=== PATIENT | female | born 1940 | race Caucasian/White ===

== ENCOUNTER 2017-01-17 22:01 | Inpatient (IN) | payer OTHER ==
[~2017-01-17] VITALS: Ht 165.1 cm; Wt 81.9 kg
[2017-01-17 22:10] VITALS: PULSE 169; O2SAT 95
[2017-01-17] MEDS ORDERED: METOPROLOL TARTRATE 1 MG/ML VIAL ONE (22:10)
[2017-01-17] MEDS ORDERED: AMIODARONE 150MG / 100ML D5W ONE (22:14)
[2017-01-17 22:31] LABS: ISTAT CREATININE 1.1 mg/dl (0.6-1.3); ISTAT HEMOGLOBIN 17.3 g/dl (12.0-16.0); ISTAT IONIZED CALCIUM 1.17 mmol/l (1.12-1.32)
[2017-01-17 22:32] LABS: VEN BLD GAS O2 SATURATION 95.3 %; VEN BLOOD GAS BASE EXCESS -6.7 mEq/L
[2017-01-17 22:39] LABS: HEMATOCRIT 46.9 % (37-47); MEAN CELL VOLUME 97.3 fL (80-100); MEAN CORPUSCULAR HEMOGLOBIN 31.1 pg (25-34); MEAN PLATELET VOLUME 11.6 fL (7.4-10.4); PLATELET COUNT 252 K/uL (130-400); RED BLOOD COUNT 4.82 M/uL (4.2-5.4)
--- NOTE | 2017-01-17 22:41 | DIAGNOSTIC IMAGING REPORT ---
CHEST ONE VIEW PORTABLE CLINICAL HISTORY: EVALUATE RESPIRATORY DISTRESS.DYSPNEA dyspnea COMPARISON STUDY: No previous studies for comparison. FINDINGS: Moderate cardiomegaly. Prominent pulmonary vasculature. Diaphragms are smooth. Slight blunting lateral costophrenic angles. IMPRESSION: Congestive heart failure versus pulmonary edema The above report was generated using voice recognition software. It may contain grammatical, syntax or spelling errors. Electronically signed by: Chente Mendez M.D. 01/17/2017 10:40 PM Dictated Date/Time: 01/17/2017 10:39 PM
[2017-01-17] MEDS ORDERED: [UNRECOGNIZED DRUG - OTHER] PO (22:46)
[2017-01-17] MEDS ORDERED: [UNRECOGNIZED DRUG - OTHER] PO (22:46)
[2017-01-17] MEDS ORDERED: CAND1TAB17 PO (22:46)
[2017-01-17] MEDS ORDERED: ALLO300T2 PO (22:46)
[2017-01-17] MEDS ORDERED: FELO5TAB PO (22:46)
[2017-01-17 22:51] LABS: INR 0.9 (0.9-1.1); PARTIAL THROMBOPLASTIN RATIO 0.9
[2017-01-17 22:57] LABS: BUN/CREATININE RATIO 16.6 (10-20); CALCIUM 8.8 mg/dl (8.5-10.1); CREATININE 1.38 mg/dl (0.60-1.20); POTASSIUM 4.5 mmol/L (3.5-5.1)
[2017-01-17 23:02] LABS: ALB/GLOB RATIO 0.9 (0.9-2)
[2017-01-17] MEDS ORDERED: ASPIRIN 324 MG CHEW PO STA (23:13)
[2017-01-17] MEDS ORDERED: NURSING VERBAL MED ORDER ONE (23:15)
[2017-01-17] MEDS: AMIODARONE IV BOLUS / DRIP IV STA ×2 (23:15→23:34)
[2017-01-17] MEDS ORDERED: AMIODARONE 360MG / 200ML D5W ONE (23:19)
[2017-01-17] MEDS ORDERED: AMIODARONE / D5W 200 ML IV SCH (23:30)
[2017-01-17 23:34] LABS: BASO ABS # 0.25 K/uL (0-0.2); BASOPHIL % 0.9 %; EOSINOPHIL % 6.2 %; LYMPH ABS # 10.74 K/uL (1.2-3.4); LYMPHOCYTE % 38.1 %; NEUTROPHILS % 26.5 %; VARIANT LYM ABS # 7.47 K/uL; VARIANT LYMPHOCYTE % 26.5 %
[2017-01-17 23:38] LABS: COMPLETE YES
--- NOTE | 2017-01-17 23:41 | EMERGENCY ROOM VISIT NOTE ---
History Report prepared by Tia: Meagan Ackerman Under the Supervision of: Dr. Monico Gomez M.D. First contact with patient: 21:58 Stated Complaint: TACHYCARDIA/SOB History of Present Illness The patient is a 76 year old white female with a past medical history of gout, HTN who presents to the ED with a cc of persistent SOB beginning 2099. She presents to the ED by EMS. EMS reports that she was in a wide complex tachycardia with rate up into the 200s. She was given lidocaine and adenosine in route. Positive tachycardia. Negative chest pain. Her family notes that she had a similar episode over the summer, but it was not as severe as this episode. Source of History: patient, family, EMS Onset: 2099 Position: other (global) Quality: other (SOB) Timing: other (persistent) Associated Symptoms: No chest pain Note: Pt has tachycardia. Review of Systems See HPI for pertinent positives and negatives. A total of ten systems were reviewed and were otherwise negative. Past Medical & Surgical Medical Problems: (1) Gout (2) HTN (hypertension) Family History No pertinent family history stated. Social History Marital Status: Current/Historical Medications Scheduled Allopurinol (Zyloprim), 300 MG PO BID Candesartan Cilexetil (Candesartan Cilexetil), 4 MG PO HS Felodipine (Plendil), 5 MG PO DAILY [Zimovane], 7.5 MG PO HS Scheduled PRN [Co-Codamol], 1-2 TABS PO QID PRN for PRN Allergies Coded Allergies: No Known Allergies (Unverified , 01/17/17) Physical Exam Vital Signs Date Time Temp Pulse Resp B/P (MAP) Pulse Ox O2 Delivery O2 Flow Rate FiO2 01/18/17 00:31 77 22 119/81 98 01/18/17 00:26 73 19 113/63 96 01/18/17 00:21 75 22 102/69 99 01/18/17 00:16 79 19 95 01/18/17 00:11 78 24 123/54 99 01/18/17 00:06 76 20 121/57 98 01/18/17 00:01 78 32 98/65 97 01/17/17 23:56 81 21 118/60 99 01/17/17 23:53 112/63 01/17/17 23:51 78 26 01/17/17 23:47 118/74 10/28/17 23:46 83 38 100 01/17/17 23:42 112/61 01/17/17 23:41 86 30 98 01/17/17 23:36 86 28 117/68 99 01/17/17 23:31 86 20 103/80 100 01/17/17 23:26 83 25 120/61 98 01/17/17 23:21 82 24 114/63 98 01/17/17 23:16 80 27 121/53 98 01/17/17 23:11 84 24 109/65 98 01/17/17 23:06 84 21 138/65 99 01/17/17 23:01 84 27 125/61 98 01/17/17 22:56 83 25 117/80 98 01/17/17 22:51 84 22 128/58 99 01/17/17 22:46 84 31 119/54 100 01/17/17 22:41 85 32 118/87 99 01/17/17 22:36 88 33 103/76 98 01/17/17 22:34 84 01/17/17 22:31 91 22 96/73 97 01/17/17 22:26 86 19 116/77 97 01/17/17 22:21 67 29 117/71 95 01/17/17 22:16 106 29 103/55 98 01/17/17 22:13 160 01/17/17 22:11 173 36 97 01/17/17 22:10 169 95 100 01/17/17 22:09 70 Room Air 01/17/17 22:09 80 Non-Rebreather 15.0 01/17/17 22:09 70 Room Air 01/17/17 22:09 160 40 112/86 70 Room Air 01/17/17 22:08 158 01/17/17 22:06 142 33 112/87 77 Physical Exam GENERAL: In extremis, tachypneic, very pale. HENT: Normocephalic, atraumatic. EYES: Normal conjunctiva. Sclera non-icteric. NECK: Supple. No nuchal rigidity. FROM. RESPIRATORY: Some crackles throughout CARDIAC: Tachycardic, no MRG ABDOMEN: Soft, NTND, BS+ MSK: No chest wall TTP. 1-2+ pitting edema b/l LE, no asymmetry. NEURO: GCS 15, CN 2-12 intact, moves all 4s on command SKIN: No rash or jaundice noted. Medical Decision & Procedures ER Provider Diagnostic Interpretation: Radiology results as stated below per my review and radiologist interpretation: CHEST ONE VIEW PORTABLE CLINICAL HISTORY: EVALUATE RESPIRATORY DISTRESS.DYSPNEA dyspnea COMPARISON STUDY: No previous studies for comparison. FINDINGS: Moderate cardiomegaly. Prominent pulmonary vasculature. Diaphragms are smooth. Slight blunting lateral costophrenic angles. IMPRESSION: Congestive heart failure versus pulmonary edema The above report was generated using voice recognition software. It may contain grammatical, syntax or spelling errors. Electronically signed by: Chente Mendez M.D. 01/17/2017 10:40 PM Dictated Date/Time: 01/17/2017 10:39 PM Laboratory Results 01/17/17 22:05 Red Blood Count 4.82, Mean Corpuscular Volume 97.3, Mean Corpuscular Hemoglobin 31.1, Mean Corpuscular Hemoglobin Concent 32.0, Mean Platelet Volume 11.6 01/17/17 22:05 Test 01/17/17 22:05 01/17/17 22:16 01/17/17 22:17 01/17/17 22:23 White Blood Count 28.20 K/uL (4.8-10.8) Red Blood Count 4.82 M/uL (4.2-5.4) Hemoglobin 15.0 g/dL (12.0-16.0) Hematocrit 46.9 % (37-47) Mean Corpuscular Volume 97.3 fL (80-100) Mean Corpuscular Hemoglobin 31.1 pg (25-34) Mean Corpuscular Hemoglobin Concent 32.0 g/dl (32-36) Platelet Count 252 K/uL (130-400) Mean Platelet Volume 11.6 fL (7.4-10.4) RDW Standard Deviation 59.6 fL (36.4-46.3) RDW Coefficient of Variation 17.2 % (11.5-14.5) Neutrophils % (Manual) 26.5 % Lymphocytes % (Manual) 38.1 % Variant Lymphocytes % (manual) 26.5 % Monocytes % (Manual) 1.8 % Eosinophils % (Manual) 6.2 % Basophils % (Manual) 0.9 % Neutrophils # (Manual) 7.47 K/uL (1.4-6.5) Total Absolute Neutrophils 7.47 K/uL (1.4-6.5) Lymphocytes # (Manual) 10.74 K/uL (1.2-3.4) Absolute Variant Lymphocytes 7.47 K/uL Total Absolute Lymphocytes 18.22 K/uL (1.2-3.4) Monocytes # (Manual) 0.51 K/uL (0.11-0.59) Eosinophils # (Manual) 1.75 K/uL (0-0.5) Basophils # (Manual) 0.25 K/uL (0-0.2) Red Blood Cell Morphology Unremarkable Prothrombin Time 10.0 SECONDS (9.0-12.0) Prothromb Time International Ratio 0.9 (0.9-1.1) Activated Partial Thromboplast Time 23.8 SECONDS (21.0-31.0) Partial Thromboplastin Ratio 0.9 Est Creatinine Clear Calc Drug Dose 38.1 ml/min Estimated GFR () 42.3 Estimated GFR (Non- 36.5 BUN/Creatinine Ratio 16.6 (10-20) Calcium Level 8.8 mg/dl (8.5-10.1) Magnesium Level 2.1 mg/dl (1.8-2.4) Total Bilirubin 0.3 mg/dl (0.2-1) Aspartate Amino Transf (AST/SGOT) 44 U/L (15-37) Alanine Aminotransferase (ALT/SGPT) 46 U/L (12-78) Alkaline Phosphatase 92 U/L (45-117) Pro-B-Type Natriuretic Peptide 816 pg/ml (0-1800) Total Protein 8.2 gm/dl (6.4-8.2) Albumin 3.8 gm/dl (3.4-5.0) Globulin 4.4 gm/dl (2.5-4.0) Albumin/Globulin Ratio 0.9 (0.9-2) Procalcitonin < 0.05 ng/ml (0-0.5) Chemistry Specimen Hemolysis Bedside Troponin I 0.210 ng/ml (0-0.045) Bedside Hemoglobin 17.3 g/dl (12.0-16.0) Bedside Hematocrit 51 % (37-47) Bedside Sodium 141 mEq/L (135-144) Bedside Potassium 4.4 mEq/L (3.3-5.0) Bedside Chloride 105 mEq/L (101-112) Bedside Total CO2 23 mEq/l (24-31) Anion Gap 19.0 mmol/L (16-25) Bedside Blood Urea Nitrogen 27 mg/dl (7-18) Bedside Creatinine 1.1 mg/dl (0.6-1.3) Bedside Glucose (other) 303 mg/dl (70-99) Bedside Ionized Calcium (Leena) 1.17 mmol/l (1.12-1.32) Lactic Acid Level 5.5 mmol/L (0.4-2.0) Test 01/17/17 22:24 01/17/17 22:27 01/18/17 00:14 Bedside Lactic Acid Venous 6.20 mmol/L (0.90-1.70) Venous Blood pH 7.25 (7.36-7.41) Venous Blood Partial Pressure CO2 48 mmHg (38.0-50.0) Venous Blood Partial Pressure O2 91 mmHg Venous Blood HCO3 21 mmol/L Venous Blood Oxygen Saturation 95.3 % Venous Blood Base Excess -6.7 mEq/L Laboratory results reviewed by me Medications Administered Medications (Trade) Dose Ordered Sig/Vanessa Route Start Time Stop Time Status Last Admin Dose Admin Metoprolol Tartrate (Lopressor Iv) 15 mg STK-MED ONCE .ROUTE 01/17/17 22:10 01/17/17 22:11 DC 01/17/17 22:13 5 MG Amiodarone HCL/ Dextrose (Nexterone / D5w) 150 mg STK-MED ONCE .ROUTE 01/17/17 22:14 01/17/17 22:15 DC 01/17/17 22:17 150 MG Aspirin (Aspirin Chew) 324 mg NOW STAT PO 01/17/17 23:13 01/17/17 23:14 DC 01/17/17 23:27 324 MG Amiodarone HCL/ Dextrose 200 ml @ 33.3 mls/hr Q6H1M IV 01/17/17 23:30 01/18/17 05:30 01/17/17 23:34 33.3 MLS/HR ECG Indication: SOB/dyspnea Rate (beats per minute): 151 Rhythm: other (regular wide complex tachycardia) Findings: LBBB (likely), ST depression (mild, V6), T-wave inversion (Lateral), other (QRS wide, no other STS changes or TWI) ED Course 2203: The patient was evaluated in room B1. A complete history and physical exam was performed. 8: I reevaluated the patient. 2220: I discussed the patient's case with Dr. Adames, [facility] cardiology. We are in agreement with the plan. 2224: Repeat EKG at this time shows sinus bradycardia, rate 40, wide QRS, LBBB, abnormally long pause, no STS changes or TWI. 2225: I reevaluated the patient. Repeat EKG at this time shows NS, rate 87, wide QRS, LBBB, LAD, TWI in 1 and avL. 2246: I spoke with Dr. Adames. 2300: I reevaluated the patient. I discussed the test results and treatment plan with her and family. The patient will be evaluated for further management. 2309: I discussed the patient's case with Dr. Giang, [facility] hospitalist. The patient will be evaluated for further treatment and disposition. Medical Decision Differential diagnosis: Etiologies such as infections, reactive airway disease, pneumonia, pneumothorax , COPD, CHF, cardiac ischemia, pulmonary embolism, musculoskeletal, gastrointestinal, as well as others were entertained. The patient is a 76 year old white female with a past medical history of gout, HTN who presents to the ED with a cc of persistent SOB beginning 2099. Patient was seen and evaluated at the bedside. This was after receiving an EMS phone call concern for a wide complex tachycardia. Patient had been given some lidocaine as well as some adenosine. Patient upon presentation was in extremis. Patient was tachypnea, tachycardic, hypoxic in the 60s. Patient was immediately put on a nonrebreather. Respiratory was called for BiPAP. On exam patient did have crackles and some mild lower extremity edema. Patient was able to speak one word at a time. I performed a bedside ultrasound which did show that the patient was fairly tachycardic but without any pericardial effusion. Patient had diffuse B lines in the bilateral lung rick but with good lung sliding. Concern for possible consolidation versus pulmonary edema. Patient's IVC was not fairly plethoric nor is flat. Given the patient's tachycardia and EKG was obtained which show that she may have been in some sort of V. tach versus A. fib versus SVT. Patient was trialed with one dose of Lopressor. This briefly improved her rate into the 140s after being as high as 180s. Patient was subsequently started on amiodarone. Patient did have a long pause and then converted to sinus. Upon reassessment patient was feeling much improved as her heart rate had improved and w/ being placed on the BiPAP. After obtaining additional history from the and from the patient they are recently [place] to visit family and friends from [place]. Patient did say she had a history of an irregular rhythm in the past have been started on atenolol. also does have a history of gout and hypertension. Patient does not take any blood thinning medications. Patient's initial troponin was elevated. I did have a long discussion with cardiology who believes that she more likely may have a SVT as opposed to a ventricular tachycardia. He recommended continuing the amiodarone drip. He also agreed to give full dose aspirin but would not do ACS protocols likely demand ischemia especially in light of her high lactate. I spoke with the admitting physician agreed with the plan of care and the patient was admitted for further workup and evaluation. Medication Reconcilliation Current Medication List: was personally reviewed by me Blood Pressure Screening Patient's blood pressure: Normal blood pressure Blood pressure disposition: Did not require urgent referral Consults Time Called: 2213 Consulting Physician: Dr. Adames [facility] cardiology Returned Call: [phone] I discussed the patient's case with him. We are in agreement with the plan. Additional Consults: Time Called: [phone] Consulted Physician: Dr. Giang [facility] hospitalist Returned Call: [phone] Additional Comments: Discussed the patient's case. The patient will be evaluated for further treatment and disposition. Impression Primary Impression: Atrial fibrillation with RVR Additional Impressions: Respiratory failure with hypoxia CHF (congestive heart failure) Critical Care I have personally spent greater than 49 minutes of critical care time in the direct management of this patient. This includes bedside care, interpretation of diagnostic studies, and testing, discussion with consultants, patient, and family members, and other required patient management activities. This 49 minutes is in excess of all separately billable procedures. Scribe Attestation The scribe's documentation has been prepared under my direction and personally reviewed by me in its entirety. I confirm that the note above accurately reflects all work, treatment, procedures, and medical decision making performed by me. Departure Information Dispostion Being Evaluated By Hospitalist Problem Qualifiers
[2017-01-18] VITALS (14 sets, daily range): BP systolic 125–157; BP diastolic 72–99; PULSE 65–82; TEMP 36.5–36.9; O2SAT 90–99; BMI 30.6
[2017-01-18] MEDS ORDERED: LORAZEPAM 0.5 MG TAB PO ONE
[2017-01-18 00:10] LABS: MAGNESIUM 2.1 mg/dl (1.8-2.4)
[2017-01-18] MEDS ORDERED: OPTIRAY 320 IV PRN (00:30)
[2017-01-18] MEDS ORDERED: LEVALBUTEROL/IPRATROPIUM NEB INH ONE (00:33)
[2017-01-18] MEDS ORDERED: AMIODARONE IV BOLUS / DRIP IV STA (00:33)
[2017-01-18] MEDS ORDERED: GLUCAGON FOR INJ 1 MG VIAL SQ PRN (00:45)
[2017-01-18] MEDS ORDERED: PROMETHAZINE HCL INJ 12.5 MG in SODIUM CHLORIDE 0.9% 50ML 50 ML IV PRN (00:45)
[2017-01-18] MEDS ORDERED: ACETAMINOPHEN 325 MG TAB PO PRN (00:45)
[2017-01-18] MEDS ORDERED: HYDROmorphone INJ 0.5 MG/0.5 ML SYR IV PRN ×2 (00:45)
[2017-01-18] MEDS ORDERED: DEXTROSE 50% 50 ML SYR IV PRN (00:45)
[2017-01-18] MEDS ORDERED: GLUCOSE 10 TABS/TUBE PO PRN (00:45)
[2017-01-18] MEDS ORDERED: TRAMADOL HCL 50 MG TAB PO PRN (00:45)
[2017-01-18] MEDS ORDERED: LEVALBUTEROL/IPRATROPIUM NEB INH PRN (00:45)
[2017-01-18] MEDS ORDERED: NITROGLYCERIN 0.4 MG SL PER TAB CHARGE SL PRN (00:45)
[2017-01-18] MEDS ORDERED: GLUCOSE 40% GEL 15 GM TUBE PO PRN (00:45)
[2017-01-18] MEDS ORDERED: IPRATROPIUM BROMIDE NEB SOLN 0.02% 2.5 ML VIAL INH STA (00:49)
[2017-01-18] MEDS ORDERED: LEVALBUTEROL 1.25MG/0.5ML NEB INH STA (00:49)
--- NOTE | 2017-01-18 00:49 | Critical Care Consultation ---
Critical Care Consultation Date of Consultation: Jan 18, 2017. Attending Physician: Reason for Consultation: Rapid afib with RVR History of Present Illness 76 year old female with PMH of gout, htn and diabetes who presented to [facility] with shortness of breath. At 6 oclock this evening she was walking down stairs when she began to feel light headed, grabbed for the railing and then passed out for no more than 10 seconds. She denies any visual changes, aura, or headache prior to the fall. The next thing she knew she was awake and there were several people around her. She did not have any tongue biting or incontinence of urine. At that point she said she felt ok and decided not to call the ambulance. 3 hours later at 9pm she started feeling short of breath on the car ride home from her friends house. The shortness of breath persisted and therefore she called EMS and was found be in afib with a wide complex and her rates were in the 200's. In the ambulance on the way to the ED she was given lidocaine and adenosine. She had a similar episode that she felt was similar in the summer but not as severe. She also notes that over the past 3 weeks she has had back pain and jaw pain at approximately the same time each day (4pm) which usually resolves with taking a codein/tylenol pill; however, she had recently stopped taking the codeine because she felt that it was making her constipated. She also notes that she has been more short of breath for the past year especially with exertion. She denies any symptoms of chest or palpitations. The CXR showed moderate cardiomegaly with prominent pulmonary vasculature. EKG showed a wide complex tachycardia at [address] mild [address] depression in V1. Pertinent labs include a wcc of 28.2 with a total lymphocyte count of 18.22 , a lactic acid of 5.5, and troponin .21. The case was discussed Dr. Adames and it was decided to start the patient on an Amiodarone drip and the patient was placed on a non rebreather at 15L of O2. The patients shortness of breath improved and her heart rate came down to the 80 's. The patient was then transferred to the ICU in case the patient had to be cardioverted. She had a chest CT angio which showed bilateral groundglass opacities and small bilateral pleural effusions. Ct abdomen/pelvis was without any acute pathology. In the ICU the patient was in NSR in the 70's and was in no discomfort. She did have part of her hearing aid lodged in her left ear that was manually removed at the bedside; however part of it was still remaining and unable to be removed. Patient was started on IV heparin due to CHADSVASC of 4. EKG obtained in the ICU did show ST elevations in leads [address] Ramos was notified of the ST elevations without reciprocal changes. He told me call cards to review the EKG and start heparin. I phoned Dr. Adames (legislative assistant) and he requested that Dr. Addison review the EKG. I approached Dr. Addison and he reviewed the EKG and said that he would get in touch with Dr. Adames. Of note the patient lives in [place] and is planning to go home on Thursday. She smokes 6 pack of cigarettes daily. Past Medical/Surgical History Gout HTN Diabetes Family History Dad - [place] Mom - Stroke Social History Smoking Status: Current Every Day Smoker (6 cigarretes daily) Alcohol Use: socially (5 days of week will have a glass of wine) Marital Status: Housing Status: lives with significant other Occupation Status: retired Allergies Coded Allergies: No Known Allergies (Unverified , 01/17/17) Home Medications Scheduled Allopurinol (Zyloprim), 300 MG PO BID Candesartan Cilexetil (Candesartan Cilexetil), 4 MG PO HS Felodipine (Plendil), 5 MG PO DAILY [Zimovane], 7.5 MG PO HS Scheduled PRN [Co-Codamol], 1-2 TABS PO QID PRN for PRN Current Inpatient Medications Current Inpatient Medications Medications (Trade) Dose Ordered Sig/Vanessa Route Start Time Stop Time Status Last Admin Dose Admin Amiodarone HCL/ Dextrose 200 ml @ 33.3 mls/hr Q6H1M IV 01/17/17 23:30 01/18/17 05:30 01/17/17 23:34 33.3 MLS/HR Ioversol (Optiray 320) 125 ml UD PRN IV 01/18/17 00:30 01/22/17 00:29 Acetaminophen (Tylenol Tab) 650 mg Q4H PRN PO 01/18/17 00:45 02/17/17 00:44 UNV Nitroglycerin (Nitrostat Tab) 0.4 mg UD PRN SL 01/18/17 00:45 02/17/17 00:44 UNV Insulin Glargine (Lantus Solostar Pen) 10 units DAILY SC 01/19/17 09:00 02/18/17 08:59 UNV Insulin Aspart (novoLOG ASPART) SLIDING SCALE If C... ACHS SC 01/18/17 07:00 02/17/17 06:59 UNV Glucose (Glucose 40% Gel) 15-30 GRAMS 15 GRAMS... UD PRN PO 01/18/17 00:45 02/17/17 00:44 UNV Glucose (Glucose Chew Tab) 4-8 Tablets 4 Tabl... UD PRN PO 01/18/17 00:45 02/17/17 00:44 UNV Dextrose (Dextrose 50% 50ML Syringe) 25-50ML OF 50% DW IV FOR... UD PRN IV 01/18/17 00:45 02/17/17 00:44 UNV Glucagon (Glucagon Inj) 1 mg UD PRN SQ 01/18/17 00:45 02/17/17 00:44 UNV Insulin Glargine (Lantus Solostar Pen) 10 units 0033 ONCE SC 01/18/17 00:33 01/18/17 00:34 UNV Insulin Aspart (novoLOG ASPART) SLIDING SCALE If C... 0033 ONCE SC 01/18/17 00:33 01/18/17 00:34 UNV Hydromorphone HCl (Dilaudid Inj) 0.5 mg Q3H PRN IV 01/18/17 00:45 02/01/17 00:44 UNV Miscellaneous (Xopenex/ Atrovent Neb) 1 ea Q4H PRN INH 01/18/17 00:45 02/17/17 00:44 UNV Miscellaneous (Xopenex/ Atrovent Neb) 1 ea 0033 ONCE INH 01/18/17 00:33 01/18/17 00:34 UNV Amiodarone HCl (Cordarone IV Bolus / Drip) 1 ea NOW STAT IV 01/18/17 00:33 01/18/17 00:34 UNV Nicotine (Nicoderm Cq 7 Mg Patch) 1 patch QAM TD 01/18/17 09:00 02/17/17 08:59 UNV Miscellaneous (Remove Nicoderm Patch) 1 ea HS N/A 01/18/17 21:00 02/17/17 20:59 UNV Promethazine HCl 12.5 mg/Sodium Chloride 50.5 ml @ 204 mls/hr Q6H PRN IV 01/18/17 00:45 02/17/17 00:44 Tramadol HCl (Ultram Tab) not relieved by tylenol @ Q6H PRN PO 01/18/17 00:45 02/17/17 00:44 UNV Hydromorphone HCl (Dilaudid Inj) 0.5 mg Q3H PRN IV 01/18/17 00:45 02/01/17 00:44 UNV Allopurinol (Zyloprim Tab) 300 mg BID PO 01/18/17 09:00 02/17/17 08:59 UNV Felodipine (Plendil Tabcr) 5 mg DAILY PO 01/18/17 09:00 02/17/17 08:59 UNV Review of Systems Constitutional: + fatigue, No fever, No chills, No sweats Respiratory: + cough (brown sputum (chronic issue)), + sputum, + shortness of breath, + dyspnea on exertion, No dyspnea at rest, No hemoptysis Cardiovascular: No chest pain, No orthopnea, No PND, No edema, No claudication , No palpitations Abdomen: + constipation, No pain, No nausea, No vomiting, No diarrhea Musculoskeletal: + muscle pain (back pain), No joint pain, No swelling, No calf pain Genitourinary - Female: No dysuria, No urinary frequency, No urinary urgency Neurologic: No paralysis, No weakness, No numbness/tingling, No vertigo Hematologic / Lymphatic: No abnormal bleeding/bruising, No clotting problems Physical Exam Date Time Temp Pulse Resp B/P (MAP) Pulse Ox O2 Delivery O2 Flow Rate FiO2 01/18/17 00:31 77 22 119/81 98 01/18/17 00:26 73 19 113/63 96 01/18/17 00:21 75 22 102/69 99 01/18/17 00:16 79 19 95 01/18/17 00:11 78 24 123/54 99 01/18/17 00:06 76 20 121/57 98 01/18/17 00:01 78 32 98/65 97 01/17/17 23:56 81 21 118/60 99 01/17/17 23:53 112/63 01/17/17 23:51 78 26 01/17/17 23:47 118/74 01/17/17 23:46 83 38 100 01/17/17 23:42 112/61 01/17/17 23:41 86 30 98 01/17/17 23:36 86 28 117/68 99 01/17/17 23:31 86 20 103/80 100 01/17/17 23:26 83 25 120/61 98 01/17/17 23:21 82 24 114/63 98 01/17/17 23:16 80 27 121/53 98 01/17/17 23:11 84 24 109/65 98 01/17/17 23:06 84 21 138/65 99 01/17/17 23:01 84 27 125/61 98 01/17/17 22:56 83 25 117/80 98 01/17/17 22:51 84 22 128/58 99 01/17/17 22:46 84 31 119/54 100 01/17/17 22:41 85 32 118/87 99 01/17/17 22:36 88 33 103/76 98 01/17/17 22:34 84 01/17/17 22:31 91 22 96/73 97 01/17/17 22:26 86 19 116/77 97 01/17/17 22:21 67 29 117/71 95 01/17/17 22:16 106 29 103/55 98 01/17/17 22:13 160 01/17/17 22:11 173 36 97 01/17/17 22:10 169 95 100 01/17/17 22:09 70 Room Air 01/17/17 22:09 80 Non-Rebreather 15.0 01/17/17 22:09 70 Room Air 01/17/17 22:09 160 40 112/86 70 Room Air 01/17/17 22:08 158 01/17/17 22:06 142 33 112/87 77 General Appearance: well-appearing, no apparent distress, obese Eyes: PERRLA, EOMI ENT: normal mouth exam, other (right ear with clear tympanic membrane, left ear with ear piece in place next to tympanic membrane) Neck: other (large neck, unable to assess JVD) Respiratory: respiratory distress, other (mild crackles at the bases bilaterally) Cardiovasular: regular rate/rhythm, no murmur Abdomen: non tender, normal bowel sounds, no rebound, no masses, no guarding Back: normal inspection, no midline tenderness Upper Extremities: no edema, no deformity, normal ROM Lower Extremities: no edema, no deformity, normal ROM Pulses: dorsalis pedis (R) (2+), dorsalis pedis (L) (2+), posterior tibial (R) , posterior tibial (L) Neuro: alert, oriented x 3, normal motor exam, normal sensation, normal speech Laboratory Results Last 24 Hours Test 01/17/17 22:05 01/17/17 22:16 01/17/17 22:17 01/17/17 22:23 White Blood Count 28.20 K/uL Red Blood Count 4.82 M/uL Hemoglobin 15.0 g/dL Hematocrit 46.9 % Mean Corpuscular Volume 97.3 fL Mean Corpuscular Hemoglobin 31.1 pg Mean Corpuscular Hemoglobin Concent 32.0 g/dl Platelet Count 252 K/uL Mean Platelet Volume 11.6 fL RDW Standard Deviation 59.6 fL RDW Coefficient of Variation 17.2 % Neutrophils % (Manual) 26.5 % Lymphocytes % (Manual) 38.1 % Variant Lymphocytes % (manual) 26.5 % Monocytes % (Manual) 1.8 % Eosinophils % (Manual) 6.2 % Basophils % (Manual) 0.9 % Neutrophils # (Manual) 7.47 K/uL Total Absolute Neutrophils 7.47 K/uL Lymphocytes # (Manual) 10.74 K/uL Absolute Variant Lymphocytes 7.47 K/uL Total Absolute Lymphocytes 18.22 K/uL Monocytes # (Manual) 0.51 K/uL Eosinophils # (Manual) 1.75 K/uL Basophils # (Manual) 0.25 K/uL Red Blood Cell Morphology Unremarkable Prothrombin Time 10.0 SECONDS Prothromb Time International Ratio 0.9 Activated Partial Thromboplast Time 23.8 SECONDS Partial Thromboplastin Ratio 0.9 Sodium Level 137 mmol/L Potassium Level 4.5 mmol/L Chloride Level 105 mmol/L Carbon Dioxide Level 21 mmol/L Anion Gap 12.0 mmol/L 19.0 mmol/L Blood Urea Nitrogen 23 mg/dl Creatinine 1.38 mg/dl Est Creatinine Clear Calc Drug Dose 38.1 ml/min Estimated GFR () 42.3 Estimated GFR (Non- 36.5 BUN/Creatinine Ratio 16.6 Random Glucose 300 mg/dl Calcium Level 8.8 mg/dl Magnesium Level 2.1 mg/dl Total Bilirubin 0.3 mg/dl Aspartate Amino Transf (AST/SGOT) 44 U/L Alanine Aminotransferase (ALT/SGPT) 46 U/L Alkaline Phosphatase 92 U/L Pro-B-Type Natriuretic Peptide 816 pg/ml Total Protein 8.2 gm/dl Albumin 3.8 gm/dl Globulin 4.4 gm/dl Albumin/Globulin Ratio 0.9 Procalcitonin < 0.05 ng/ml Chemistry Specimen Hemolysis Bedside Troponin I 0.210 ng/ml Bedside Hemoglobin 17.3 g/dl Bedside Hematocrit 51 % Bedside Sodium 141 mEq/L Bedside Potassium 4.4 mEq/L Bedside Chloride 105 mEq/L Bedside Total CO2 23 mEq/l Bedside Blood Urea Nitrogen 27 mg/dl Bedside Creatinine 1.1 mg/dl Bedside Glucose (other) 303 mg/dl Bedside Ionized Calcium (Leena) 1.17 mmol/l Lactic Acid Level 5.5 mmol/L Test 01/17/17 22:24 01/17/17 22:27 01/18/17 00:14 01/18/17 00:33 Bedside Lactic Acid Venous 6.20 mmol/L Venous Blood pH 7.25 Venous Blood Partial Pressure CO2 48 mmHg Venous Blood Partial Pressure O2 91 mmHg Venous Blood HCO3 21 mmol/L Venous Blood Oxygen Saturation 95.3 % Venous Blood Base Excess -6.7 mEq/L Assessment & Plan 76 year old female presented to [facility] with shortness of breath and was found to be in afib with rvr at a rate of 150. Was started on an amiodarone drip and then she converted to NSR with a rate in the 70's. In the ICU she had EKG changes and a rise in her troponin to 0.5. Cardiology were contacted to further evaluate the EKG changes. CAM negative 0.5mg dilaudid PRN for pain zopiclone for sleep tylenol prn for pain tramadol stopped co-codamol on hold zopiclone on hold CARDIAC EKG st elevation in leads 2 and 3 troponin elevated at 0.2 and 0.5, continue to trend q8 IV heparin drip started cardiology notified and contact atrial fibrillation corrected with IV amiodarone drip [id number] therefore anticoagulation candidate, started IV heparin CT Chest with bilateral small pleural effusions elevated troponins due to ongoing ischaemia versus prolonged elevated heart rate in setting of afib (demand ischaemia) echo ordered for the morning continue atenolol, and felodipine hold caldesartan aspirin given in ED, started 81mg qam, nitro prn for chest pain monitor I/O's RESP patient on 10L non rebreather CT chest showed bilateral groundglass opacities and small bilateral pleural effusions likely to be from cardiac status with backup of fluid unlikely pneumonia considering afebrile, negative procalcitonin and no objective fevers/chills levalbuterol and ipratropium prn shortness of breath ID patient with elevated wcc of 28.2, afebrile and without wcc, lactic acid 5.5 zosyn IV started by primary team urine analysis and culture ordered continue to monitor fever curve GI NPO in case cardiology want to do procedure in the morning CT abdomen and pelvis without any acute pathology ENDO bsg 300's on arrival HbA1c pending given 10 units of lantus and bsg 126 10 units daily TSH within normal limits RENAL GFR 36.5 sodium 141 and potassium 4.4 creatinine 1.38, unsure of baseline patient currently not receiving IV fluids RHEUM patient has gout on allopurinol HEME wcc elevated --->lymphocyte count elevated platelets normal peripheral blood smear ordered DVT prophylaxis - IV heparin Code - Level 3 no CPR, no intubation with CPR, intubation if acute issue with short term need ADDENDUM: patient was seen at the bedside this morning. we will be giving her another dose of lasix 40mg IV and will be stopping her zosyn. primary team was spoken to this morning and she will be transferred to telemetry Resident Physician Supervision Note: Dr. Agosto was resident physician during care of patient. I separately evaluated patient and did history and exam. I discussed the case with the resident and generally agree with the findings and plan. afib with RVR converted with amiodarone. Diuresis and heparin. Chest pain during event. Cardiology following. Stable for transfer to telemetry. Discussed with hospitalist. I have personally spent 50 minutes of critical care time in the direct management of this patient. This is a life/limb threatening event. This includes time spent evaluating patient, direct bedside care, chart review, placing orders, interpretation of diagnostic studies, discussion with consultants, patient, and family members, as well as other required patient management activities. This time is exclusive of all separately billable procedures, and teaching time and separate from and in addition to any other critical care service time. Documented By: Jaylon Ramos DO
[2017-01-18] MEDS ORDERED: IPRATROPIUM BROMIDE NEB SOLN 0.02% 2.5 ML VIAL INH PRN (01:00)
[2017-01-18] MEDS ORDERED: LEVALBUTEROL 1.25MG/0.5ML NEB INH PRN (01:00)
[2017-01-18 01:35] LABS: THYROID STIMULATING HORMONE 1.31 uIu/ml (0.300-4.500)
[2017-01-18] MEDS ORDERED: INSULIN GLARGINE SOLOSTAR 100 UNITS/ML 3 ML PEN SC ONE (02:00)
[2017-01-18] MEDS ORDERED: INSULIN ASPART 100 UNITS/ML 3 ML PEN SC ONE (02:00)
[2017-01-18] MEDS ORDERED: ASPIRIN 81 MG ECTAB PO STA (02:26)
[2017-01-18] MEDS ORDERED: HEPARIN IV LOW DOSE NO BOLUS SCH (02:30)
[2017-01-18 02:46] LABS: MANUAL MICROSCOPIC REQUIRED? NO; REVIEW REQ? NO; URINE APPEARANCE CLEAR (CLEAR); URINE BILIRUBIN NEG (NEG); URINE COLOR YELLOW; URINE EPITHELIAL CELL AUTO >30 /lpf (0-5); URINE NITRITE POS (NEG); URINE SPECIFIC GRAVITY > 1.045 (1.000-1.030); UROBILINOGEN NEG (NEG); ZZUR CULT IF INDIC CLEAN CATCH YES
[2017-01-18] MEDS ORDERED: PIPERACILLIN/TAZOBACTAM 4.5 GM/100ML D5W IV STA (03:01)
[2017-01-18] MEDS: ALBUMIN HUMAN 25% 12.5 GM/50 ML VIAL IV SCH ×2 (03:10→03:35)
[2017-01-18] MEDS ORDERED: HEPARIN IV BOLUS 5,000 UNIT in SYRINGE 0 ML IV ONE (03:15)
[2017-01-18] MEDS ORDERED: PIPERACILL/TAZOBAC CONSULT ACTIVE PRN (03:15)
[2017-01-18] MEDS: HEPARIN 25,000 UNIT/500ML D5W 500 ML IV PRN (03:49)
[2017-01-18] MEDS ORDERED: FUROSEMIDE INJ 40 MG in SYRINGE 0 ML IV ONE ×2 (04:15→09:00)
--- NOTE | 2017-01-18 05:19 | DIAGNOSTIC IMAGING REPORT ---
Study: CTA of the chest HISTORY:. Chest pain. FINDINGS: The thoracic aorta is normal in course and caliber. Moderate atelectatic changes present. Evidence for aneurysm or dissection. The heart is enlarged. Components of moderate pulmonary edema/congestive failure. Mild mediastinal and hilar adenopathy. No evidence for significant pulmonary embolism. IMPRESSION: 1. No evidence for aneurysm or dissection. 2. Moderate atherosclerotic change thoracic aorta. 3. Components of congestive heart failure with right to lesser extent left pleural effusion. 4. Moderate cardiomegaly. 5. No evidence for pulmonary embolus Electronically signed by: Chente Mendez M.D. 01/18/2017 5:18 AM Dictated Date/Time: 01/18/2017 5:15 AM
--- NOTE | 2017-01-18 05:21 | DIAGNOSTIC IMAGING REPORT ---
ABD/PELVIS WITHOUT FOR STONE CT DOSE: HISTORY: Flank pain FINDINGS: bilateral pleural effusions. Bibasilar atelectasis. Liver spleen and pancreas are unremarkable. Several calcified splenic granulomas are present. Hyperplastic change of the adrenal glands. Moderate atherosclerotic change abdominal and pelvic arterial vasculature. No evidence for aneurysm or dissection. Nonobstructive bowel pattern. Scattered colonic diverticulosis. No evidence for diverticulitis. Degenerative changes of the thoracolumbar spine. Negative urinary tracts. TECHNIQUE: Multiaxial CT images of the abdomen and pelvis were performed without the use of intravenous and oral contrast according to the standard department stone protocol. A dose lowering technique was utilized adhering to the principles of ALARA. COMPARISON STUDY: None. IMPRESSION: Bilateral pleural effusions with bibasilar atelectasis. No acute process specifically of the abdomen or pelvis. No acute process of the abdomen or pelvis. The above report was generated using voice recognition software. It may contain grammatical, syntax or spelling errors. Electronically signed by: Chente Menedz M.D. 01/18/2017 5:20 AM Dictated Date/Time: 01/18/2017 5:18 AM
[2017-01-18] MEDS: AMIODARONE / D5W 200 ML IV SCH ×2 (05:42→17:27)
[2017-01-18 06:00] LABS: HEMATOCRIT 41.2 % (37-47); MEAN CELL VOLUME 95.8 fL (80-100); MEAN CORPUSCULAR HGB CONC 31.3 g/dl (32-36); MEAN PLATELET VOLUME 10.7 fL (7.4-10.4); PLATELET COUNT 198 K/uL (130-400); VEN BLOOD GAS BASE EXCESS 0.4 mEq/L; VENOUS BLOOD GAS PCO2 51 mmHg (38.0-50.0); VENOUS BLOOD GAS PO2 29 mmHg; WHITE BLOOD COUNT 18.63 K/uL (4.8-10.8)
[2017-01-18 06:03] LABS: VEN BLD GAS O2 SATURATION < 60.0 %
[2017-01-18 06:36] LABS: ALT/SGPT 41 U/L (12-78); BLOOD UREA NITROGEN 27 mg/dl (7-18); BUN/CREATININE RATIO 22.3 (10-20); CARBON DIOXIDE 28 mmol/L (21-32); CHLORIDE 104 mmol/L (98-107); CHOLESTEROL 192 mg/dl (0-200); CREATININE 1.22 mg/dl (0.60-1.20); GLUCOSE 149 mg/dl (70-99); POTASSIUM 5.1 mmol/L (3.5-5.1); SODIUM 139 mmol/L (136-145)
[2017-01-18 06:43] LABS: ALKALINE PHOSPHATASE 75 U/L (45-117); AST/SGOT 41 U/L (15-37); CHOLESTEROL/HDL RATIO 3.8; HDL CHOLESTEROL 51 mg/dl; LDL CHOLESTEROL CALCULATED 123 mg/dl; PHOSPHORUS 3.7 mg/dl (2.5-4.9); TRIGLYCERIDES 88 mg/dl (0-150); VERY LOW DENSITY LIPOPROT CALC 18 mg/dl
[2017-01-18 06:53] LABS: BASO % 0.1 %; BASO ABS # 0.02 K/uL (0-0.2); COMPLETE YES; EOS % 0.3 %; IG% 0.6 %; LYMPH ABS # 6.34 K/uL (1.2-3.4); MONO % 3.6 %; NEUT % 61.4 %
[2017-01-18] MEDS ORDERED: PERFLUTREN LIPID MICROSPHERE (DEFINITY) IV ONE (07:16)
[2017-01-18] MEDS: LEVALBUTEROL 1.25MG/0.5ML NEB INH SCH ×3 (07:46→19:26)
[2017-01-18] MEDS: IPRATROPIUM BROMIDE NEB SOLN 0.02% 2.5 ML VIAL INH SCH ×3 (07:46→19:26)
--- NOTE | 2017-01-18 07:56 | HISTORY & PHYSICAL EXAMINATION ---
DATE OF ADMISSION: 01/18/2017 PRIMARY CARE DOCTOR: Dr. Dontae Schroeder from [place]. CHIEF COMPLAINT: Shortness of breath. History was obtained from the patient and ER provider. HISTORY OF PRESENT ILLNESS: Medical history is significant for hypertension, DM2 diet-controlled, ongoing tobacco abuse and gout. Patient is a [place] resident who has been in [facility] to visit family since last month. A few months ago in [place], the patient had a respiratory infection for which she completed antibiotic Rx. In the last week had intermittent left-sided chest discomfort going to the back between the shoulder blades, nonpleuritic. Intermittent daily symptoms accompanied by shortness of breath and palpitations relieved by home narcotics. Patient also complaining of achy low back discomfort. Patient denies leg swelling. Last night, she had worsening discomfort and shortness of breath. Patient was brought to the Emergency Room, noted to be in respiratory distress, hypoxemic. Wide complex tachycardia, transient A-Fib in the ER. Patient was given Lopressor followed by Amiodarone drip. Patient was started on BiPAP. She was also given aspirin. Currently feeling comfortable. Hx of beta jose use in the past - stopped by her PCP due to concern about sugars as per patient. Although the patient snores, no apneic episodes noted as per . MEDICAL HISTORY: As above. SURGERIES: None. HOME MEDICATIONS: Losartan, Comadol, Plendil ALLERGIES: No known drug allergies. FAMILY HISTORY: Heart disease. PERSONAL AND SOCIAL HISTORY: Down to six cigarettes a day. Occasional alcoholic beverage intake. Retired from construction work. REVIEW OF SYSTEMS: As per HPI. All other ROS negative. PHYSICAL EXAMINATION: VITAL SIGNS: Blood pressure was noted to be 112/87, pulse rate 142 later 86, RR 33 later 22, temperature 36.8 and sats 77 on room air later 95 on BiPAP. GENERAL: Noted to be obese, slightly anxious, in no respiratory distress. SKIN: Normal color, warm. HEENT: Lamy palpebral conjunctivae. No ptosis. Dry mucosa. BiPAP mask in place. NECK: Short. No tenderness. JVD not assessed. CHEST: Decreased breath sounds. No tenderness. CV: Regular rate and rhythm. Palpable LE pulses ABDOMEN: Some distention, nontender. EXTREMITIES: No edema, no tenderness. No gross deformities NEUROLOGIC: Coherent. No gross focality. LABORATORIES: Hemoglobin was noted to be 15, white cell count 28.2 and platelets 252. Sodium noted to be 137, potassium 4.5 chloride 105, CO2 21, BUN 23, creatinine 1.4 glucose 300. Lactic acid was noted to be 5.5. Troponin 0.21. BNP was noted to be normal. Venous blood gas noted pH 7.35 and pCO2 of 48. EKG as per my interpretation; rate 150. A-Fib, LAD, LAFB, left bundle branch block Chest x-ray; CHF, cardiomegaly. ASSESSMENT: 1. Acute hypoxemic respiratory failure secondary to possible congestive heart failure normal BNP. 2. Atrial fibrillation new onset Onset probably from last month Patient is currently in normal sinus rhythm. 3. Left-sided chest pain going to the back rule out aortic dissection. Possible ACS 4. Back pain, rule out kidney stone 5. SIRS, lactic acidosis possible sepsis No obvious source for now 6. Hypertension, stable. 7. DM2 diet-controlled currently hyperglycemic Patient claims last outpx HgA1c from September 2016 was 6. 8. Acute renal failure, unknown duration 9. Ongoing tobacco abuse. PLAN: ICU monitoring as per Cardiology recommendation. Patient may need cardioversion for recurrence of wide complex tachycardia. Continue IV Amiodarone for tachyarrhythmia as per Cardiology. Aspirin for CAD prevention as per Cardiology recommendations until ACS ruled out. Supplemental O2 with BiPAP for now. CT aortic dissection study. CT of abdomen/pelvis RE back pain. Baseline UA, monitor renal function. TTE RE chest pain, new onset A. fib IV heparin if no bleed on CT on CT imaging for thromboembolic prevention for atrial fibrillation. Cultures, follow lactic acid, IV albumin for now given equivocal volume status. May need antibiotics depending on workup results Basal insulin, ISS BG goal 140-180 Check hemoglobin A1c. Nicotine patch. DVT prophylaxis, Heparin if no bleeding on CT. Full code. MTDD
[2017-01-18] MEDS: NICOTINE 7 MG/24 HR TDSY TD SCH (08:17)
[2017-01-18] MEDS: INSULIN ASPART 100 UNITS/ML 3 ML PEN SC SCH ×4 (08:17→20:43)
[2017-01-18] MEDS: ALLOPURINOL 300 MG TAB PO SCH ×2 (08:17→20:46)
[2017-01-18] MEDS: FELODIPINE 5 MG TABCR PO SCH (08:17)
[2017-01-18] MEDS ORDERED: LEVALBUTEROL/IPRATROPIUM NEB INH SCH (09:00)
--- NOTE | 2017-01-18 09:26 | ECHOCARDIOGRAM REPORT ---
*NOTICE TO RECEIVING REPUBLICAN AGENCY This information is strictly Confidential and protected under [place] law. [place] law prohibits you from making any further disclosure of this information unless further disclosure is expressly permitted by the written consent of the person to whom it pertains or is authorized by law. A general authorization for the release of medical or other information is not sufficient for this purpose. Hospital accepts no responsibility if the information is made available to any other person, INCLUDING THE PATIENT. Interpretation Summary * Name: NATASHA KEATING Study Date: 01/18/2017 06:39 AM BP: 152/79 mmHg * Patient Location: .MSICU\S\E104\S\1 HR: 76 * : 1940 (M/d/y) Gender: Female Height: 66 in * Age: 76 yrs Ethnicity: CA Weight: 199 lb * Ordering Physician: Marquez Giang * Performed By: Negin Gregg RDCS * * Reason For Study: CHEST PAIN * BSA: 2.0 m2 * The study was technically difficult. * There is no comparison study available. * -- Conclusions -- * Left ventricular systolic function is borderline reduced. * The qualitative EF is 50% * Septal and apical motion is consistent with conduction abnormality. * The aortic valve is moderately to severely calcified. * Doppler and 2D imaging of the aortic valve are discordant. Moderate to borderline severe aortic stenosis is suspected. * Mild aortic regurgitation. * There is moderate mitral regurgitation. Procedure Details * A complete two-dimensional transthoracic echocardiogram was performed (2D, M-mode, Doppler and color flow Doppler). * A contrast injection of Definity was performed to improve assessment of LV function. * Contrast was injected into an intravenous site in the right arm. * One vial of Definity ultrasound contrast was diluted in normal saline to a total volume of 10 ml. A total of '3' ml of solution was administered during imaging. * Lot # [id number] of Definity utilized for procedure. * Expiration date 01/07. * The attending nurse who injected the contrast agent was ILANA TOTH RN. Left Ventricle * The left ventricle is normal in size. * There is normal left ventricular wall thickness. * Left ventricular systolic function is borderline reduced. * The qualitative EF is 50% * Septal and apical motion is consistent with conduction abnormality. Right Ventricle * The right ventricle is normal size. * The right ventricular systolic function is normal as assessed by tricuspid annular plane systolic excursion (TAPSE) (normal >1.5 cm). Atria * The left atrial size is normal. * Right atrial size is normal. * There is no evidence of atrial septal defect, but resolution does not allow assessment for a patent foramen ovale. Mitral Valve * There is moderate mitral annular calcification. * There is no mitral valve stenosis. * There is moderate mitral regurgitation. Tricuspid Valve * The tricuspid valve is normal. * There is no tricuspid stenosis. * Significant tricuspid regurgitation is absent. Aortic Valve * The aortic valve is not well visualized. * The aortic valve is moderately to severely calcified. * Doppler and 2D imaging of the aortic valve are discordant. Moderate to borderline severe aortic stenosis is suspected. * Mild aortic regurgitation. Pulmonic Valve * The pulmonary valve is not well seen, but the Doppler examination is normal without significant regurgitation or stenosis. Great Vessels * The aortic root and proximal ascending aorta are normal sized. Pericardium/Pleural * There is no pericardial effusion. Great Vessels * Normal inferior vena cava diameter and respiratory variation suggests normal central venous pressure. Left Ventricular Diastolic Function * Diastolic dysfunction, Grade II (pseudonormalization pattern). MMode 2D Measurements and Calculations IVSd 1.2 cm IVSs 1.2 cm LVIDd 4.5 cm LVIDs 3.4 cm LVPWd 1.1 cm LVPWs 1.6 cm IVS/LVPW 1.0 FS 23.4 % EDV(Teich) 90.7 ml ESV(Teich) 48.1 ml EF(Teich) 47.0 % EDV(cubed) 89.0 ml ESV(cubed) 40.0 ml EF(cubed) 55.1 % % IVS thick 5.9 % % LVPW thick 45.1 % LV mass(C)d 184.8 grams LV mass(C)dI 92.6 grams/m\S\2 LV mass(C)s 175.8 grams LV mass(C)sI 88.1 grams/m\S\2 SV(Teich) 42.6 ml SI(Teich) 21.4 ml/m\S\2 SV(cubed) 49.0 ml SI(cubed) 24.5 ml/m\S\2 ACS 0.70 cm asc Aorta Diam 2.6 cm LVOT diam 1.9 cm LVOT area 2.9 cm\S\2 LVAd ap4 31.4 cm\S\2 LVLd ap4 7.8 cm EDV(MOD-sp4) 103.7 ml EDV(sp4-el) 107.6 ml LVAs ap4 21.3 cm\S\2 LVLs ap4 7.3 cm ESV(MOD-sp4) 51.4 ml ESV(sp4-el) 52.6 ml EF(MOD-sp4) 50.4 % EF(sp4-el) 51.1 % LVAd ap2 35.5 cm\S\2 LVLd ap2 8.4 cm EDV(MOD-sp2) 126.4 ml EDV(sp2-el) 127.0 ml LVAs ap2 24.4 cm\S\2 LVLs ap2 8.0 cm ESV(MOD-sp2) 63.2 ml ESV(sp2-el) 63.7 ml EF(MOD-sp2) 50.0 % EF(sp2-el) 49.9 % LVLd %diff 7.5 % EDV(MOD-bp) 115.8 ml LVLs %diff 8.0 % ESV(MOD-bp) 58.8 ml EF(MOD-bp) 49.2 % SV(MOD-sp4) 52.3 ml SI(MOD-sp4) 26.2 ml/m\S\2 SV(MOD-sp2) 63.2 ml SI(MOD-sp2) 31.7 ml/m\S\2 SV(MOD-bp) 57.0 ml SI(MOD-bp) 28.6 ml/m\S\2 SV(sp4-el) 55.0 ml SI(sp4-el) 27.5 ml/m\S\2 SV(sp2-el) 63.3 ml SI(sp2-el) 31.7 ml/m\S\2 Doppler Measurements and Calculations MV E max preston 151.5 cm/sec MV A max preston 110.0 cm/sec MV E/A 1.4 MV V2 max 182.0 cm/sec MV max PG 13.3 mmHg MV V2 mean 99.2 cm/sec MV mean PG 4.8 mmHg MV V2 VTI 43.4 cm MV P1/2t max preston 161.3 cm/sec MV P1/2t 63.0 msec MVA(P1/2t) 3.5 cm\S\2 MV dec slope 749.6 cm/sec\S\2 MV dec time 0.23 sec Ao V2 max 298.5 cm/sec Ao max PG 35.7 mmHg Ao max PG (full) 33.3 mmHg Ao V2 mean 215.6 cm/sec Ao mean PG 21.7 mmHg Ao V2 VTI 73.9 cm SHERON(V,A) 0.76 cm\S\2 SHERON(V,D) 0.76 cm\S\2 AI max preston 346.8 cm/sec AI max PG 48.1 mmHg AI dec slope 161.7 cm/sec\S\2 AI P1/2t 628.4 msec LV V1 max PG 2.4 mmHg LV V1 max 78.2 cm/sec MR max preston 528.8 cm/sec MR max PG 111.9 mmHg PA V2 max 61.9 cm/sec PA max PG 1.6 mmHg TR max preston 290.1 cm/sec
[2017-01-18] MEDS ORDERED: PIPERACILL/TAZOBAC IV 3.375 GM in DEXTROSE 5% 100ML IV SCH (10:00)
[2017-01-18 11:15] LABS: PARTIAL THROMBOPLASTIN RATIO 2.3
--- NOTE | 2017-01-18 11:20 | CARDIOLOGY CONSULTATION ---
DATE OF CONSULTATION: 01/18/2017 REFERRING PHYSICIAN: Dr. Marquez Giang. REASON FOR CONSULTATION: Wide complex tachycardia and elevated troponin. HISTORY OF PRESENT ILLNESS: Ms. Clarke is a 76-year-old female who presented to the Emergency Department with tachycardia, syncope, or dyspnea. I was contacted by the ER physician last evening secondary to persistent wide complex tachycardia with a heart rate of approximately 150 beats per minute. The patient was treated with intravenous Lopressor and then IV amiodarone. She subsequently converted to normal sinus rhythm. She has been maintained on an amiodarone infusion overnight. Wide complex tachycardia likely represents supraventricular tachycardia versus atrial flutter with an underlying left bundle branch block rather than ventricular tachycardia. Due elevated troponin, intravenous heparin was initiated. The patient denies any chest discomfort. Prior to admission, the patient reports episodes of "heart racing," which has been present over the past 6 weeks. This seems to correspond with discontinuation of her atenolol in mid November. She typically resides in [place] and her medication was discontinued by her physician due to a history of diabetes. She has not been medicated for diabetes. She smokes approximately 6 cigarettes per day. She notes dyspnea on exertion when climbing stairs. Denies any chest discomfort. Reports 2 episodes of syncope occurring in June and then again in September. There was no cardiac workup performed while residing in [place]. Her echocardiogram demonstrates moderate to possibly severe aortic stenosis, moderate mitral regurgitation, borderline reduced LV systolic function and abnormal septal wall motion consistent with conduction abnormality. The patient diuresed approximately 1.2 L with IV Lasix in the ER. Feeling much better this morning. She is planning to travel back to [place] on Thursday. Denies any fever, chills, or sick contacts. No frequency, urgency or dysuria. Her urinalysis suggests possible UTI and her CBC notes a markedly elevated white blood cell count. REVIEW OF SYSTEMS: The pertinent positive noted above. A comprehensive 10-system review is otherwise negative. PAST MEDICAL HISTORY: 1. Diabetes, type 2. 2. Hypertension. PAST SURGICAL HISTORY: Denied. HOME MEDICATIONS: 1. Felodipine. 2. The patient is not taking atenolol since november. 3. Losartan. ALLERGIES: No known drug allergies. SOCIAL HISTORY: She is an active smoker, smoking approximately 6 cigarettes per day at this time. She is and lives with her . They traveled to [place] for their 50th anniversary. FAMILY HISTORY: Negative for premature CAD or sudden cardiac ; however, noncontributory given the patient's advanced age. LABORATORY DATA: White blood cell count is 28.20 on admission. Repeat white blood cell count this morning is 18.63. Hemoglobin is 12.9 and platelet count is 198. VBG performed this morning, 7.34/51/29/27. Point of care troponin 0.210. Repeat troponin 0.577. Troponin this morning of 2.730. Sodium 139, potassium 5.1, chloride 104, CO2 is 28, BUN is 27, and creatinine is 1.22. Creatinine on admission was 1.38. INR 0.9. Urinalysis is positive for nitrite, negative leukocyte esterase, positive WBCs and bacteria. CT for dissection was negative. Personal review of images demonstrates diffuse coronary calcification as well as calcification of the aortic valve. Chest x-ray demonstrates pulmonary edema. CT of the abdomen and pelvis, bilateral pleural effusions without atelectasis. Telemetry demonstrates sinus rhythm with left bundle branch block. Resting 2D transthoracic echo demonstrates ejection fraction of 50% with abnormal septal wall motion, moderately to severely calcified aortic valve with moderate to borderline severe aortic stenosis by 2D inspection, moderate mitral regurgitation, no pericardial effusion. PHYSICAL EXAMINATION: VITAL SIGNS: Temperature is 36.8 degrees centigrade, pulse is 74 beats per minute and regular, respiratory rate is 20 breaths per minute, blood pressure 156/91 and SaO2 is 98% on 2 liters nasal cannula. GENERAL: NAD, overweight, awake, alert and oriented x3. She is pleasant and cooperative. HEENT: Her mucous membranes are moist. No scleral icterus. Conjunctivae are pink. NECK: Supple without JVD in the upright position. HEART: Regular with a 2/6 mid to late peaking systolic ejection murmur heard best at the right second intercostal space without radiation. PULMONARY: Demonstrates crackles in the bilateral mid lung rick with diminished breath sounds at the bases bilaterally. There is no rhonchi or wheeze. ABDOMEN: Soft and nontender. No rebound or guarding. Normal bowel sounds. EXTREMITIES: Warm and dry. There is no clubbing, cyanosis, or edema. NEUROLOGIC: Demonstrates no focal motor deficit. FINAL IMPRESSION: 1. A 76-year-old female presents with unstable wide complex tachycardia. Review of ECG suggests paroxysmal atrial fibrillation / flutter with RVR. The patient converted to sinus rhythm with intravenous amiodarone and has been maintained in sinus rhythm overnight. 2. Elevated troponin -- suspect type 2 non-ST elevation myocardial infarction secondary to demand ischemia in the presence of fixed coronary artery disease as well as moderate to severe aortic stenosis. 3. Borderline reduced LV systolic function with an ejection fraction of 50%. 4. Moderate to borderline severe aortic stenosis. 5. Moderate mitral insufficiency. 6. Diffuse coronary artery calcifications noted on CT. 7. Markedly elevated WBC count with urinalysis suggestive of urinary tract infection. 8. Acute decompensated systolic heart failure secondary to #1 and #2. 9. Renal insufficiency. 10. Diabetes type 2 - unmedicated. 11. Elevated lymphocyte count -- peripheral blood smear ordered. 12. Left bundle branch block -- chronicity unknown. PLAN AND RECOMMENDATIONS: I had a long discussion with the patient at the bedside regarding her unstable dysrhythmia, 2D echocardiographic findings as well as elevated troponin. I suspect she has underlying fixed coronary artery disease given her longstanding history of diabetes and tobacco use. Today, she will continue intravenous heparin, intravenous amiodarone as well as IV Lasix for treatment of acute decompensated heart failure. Further evaluation of her aortic valve disease as well as presumed underlying coronary artery disease is warranted. I discussed possible cardiac catheterization as well as transesophageal echocardiography during hospitalization. The patient is somewhat reluctant to proceed with any invasive procedures at this time as she is planning to return to [place] on Thursday. We discussed the potential risks of travel without completing her cardiovascular workup. She voiced understanding. I have also requested copies of the monitor strips performed by EMS en route to the hospital. All questions were answered to the patient's satisfaction. We will continue to monitor in ICU today. Thank you for allowing me to take part in the care of your patient. Note, approximately 60 minutes critical care time was spent in direct care patient, discussion and formulation of plan of care, review of studies, and placing orders. SEAN
--- NOTE | 2017-01-18 11:44 | Progress Note ---
Medicine Progress Note Date & Time of Visit: Jan 18, 2017 at 10:23. Subjective Pt was seen and examined Lying in bed with no distress Pt said that she feels much better today She said that her breathing is better She said that she should like to be discharged tomorrow because she has a flight to catch to [place] on Thursday Objective Last 8 Hrs Date Time Temp Pulse Resp B/P (MAP) Pulse Ox O2 Delivery O2 Flow Rate FiO2 01/18/17 08:00 Nasal Cannula 2.0 01/18/17 07:47 72 20 98 Diffusion Mask 8.0 01/18/17 06:00 74 28 156/91 (112) 98 Oxymask 6.0 01/18/17 06:00 74 28 98 01/18/17 05:00 76 27 98 01/18/17 04:00 36.8 73 22 152/79 (103) 98 Oxymask 6.0 01/18/17 04:00 73 98 01/18/17 04:00 73 98 01/18/17 04:00 Oxymask 6.0 01/18/17 03:00 79 30 99 Physical Exam: General- No acute distress Head- atraumatic Eyes- PERRL, EOMI ENT- oropharynx clear Neck- supple, no JVD Lungs- No wheezing, no crackle Heart- regular rhythm Abdomen- normal bowel sounds, soft Extremities- no calf tenderness Neuro- alert, oriented x 3; PERRL, EOMI; no facial palsy; Skin- warm & dry Laboratory Results: Last 24 Hours Test 01/17/17 22:05 01/17/17 22:16 01/17/17 22:17 01/17/17 22:23 White Blood Count 28.20 K/uL Red Blood Count 4.82 M/uL Hemoglobin 15.0 g/dL Hematocrit 46.9 % Mean Corpuscular Volume 97.3 fL Mean Corpuscular Hemoglobin 31.1 pg Mean Corpuscular Hemoglobin Concent 32.0 g/dl Platelet Count 252 K/uL Mean Platelet Volume 11.6 fL RDW Standard Deviation 59.6 fL RDW Coefficient of Variation 17.2 % Neutrophils % (Manual) 26.5 % Lymphocytes % (Manual) 38.1 % Variant Lymphocytes % (manual) 26.5 % Monocytes % (Manual) 1.8 % Eosinophils % (Manual) 6.2 % Basophils % (Manual) 0.9 % Neutrophils # (Manual) 7.47 K/uL Total Absolute Neutrophils 7.47 K/uL Lymphocytes # (Manual) 10.74 K/uL Absolute Variant Lymphocytes 7.47 K/uL Total Absolute Lymphocytes 18.22 K/uL Monocytes # (Manual) 0.51 K/uL Eosinophils # (Manual) 1.75 K/uL Basophils # (Manual) 0.25 K/uL Red Blood Cell Morphology Unremarkable Prothrombin Time 10.0 SECONDS Prothromb Time International Ratio 0.9 Activated Partial Thromboplast Time 23.8 SECONDS Partial Thromboplastin Ratio 0.9 Sodium Level 137 mmol/L Potassium Level 4.5 mmol/L Chloride Level 105 mmol/L Carbon Dioxide Level 21 mmol/L Anion Gap 12.0 mmol/L 19.0 mmol/L Blood Urea Nitrogen 23 mg/dl Creatinine 1.38 mg/dl Est Creatinine Clear Calc Drug Dose 38.1 ml/min Estimated GFR () 42.3 Estimated GFR (Non- 36.5 BUN/Creatinine Ratio 16.6 Random Glucose 300 mg/dl Calcium Level 8.8 mg/dl Magnesium Level 2.1 mg/dl Total Bilirubin 0.3 mg/dl Aspartate Amino Transf (AST/SGOT) 44 U/L Alanine Aminotransferase (ALT/SGPT) 46 U/L Alkaline Phosphatase 92 U/L Pro-B-Type Natriuretic Peptide 816 pg/ml Total Protein 8.2 gm/dl Albumin 3.8 gm/dl Globulin 4.4 gm/dl Albumin/Globulin Ratio 0.9 Procalcitonin < 0.05 ng/ml Chemistry Specimen Hemolysis Bedside Troponin I 0.210 ng/ml Bedside Hemoglobin 17.3 g/dl Bedside Hematocrit 51 % Bedside Sodium 141 mEq/L Bedside Potassium 4.4 mEq/L Bedside Chloride 105 mEq/L Bedside Total CO2 23 mEq/l Bedside Blood Urea Nitrogen 27 mg/dl Bedside Creatinine 1.1 mg/dl Bedside Glucose (other) 303 mg/dl Bedside Ionized Calcium (Leena) 1.17 mmol/l Lactic Acid Level 5.5 mmol/L Test 01/17/17 22:24 01/17/17 22:27 01/18/17 00:14 01/18/17 02:30 Bedside Lactic Acid Venous 6.20 mmol/L Venous Blood pH 7.25 Venous Blood Partial Pressure CO2 48 mmHg Venous Blood Partial Pressure O2 91 mmHg Venous Blood HCO3 21 mmol/L Venous Blood Oxygen Saturation 95.3 % Venous Blood Base Excess -6.7 mEq/L Troponin I 0.577 ng/ml Lipase 101 U/L Thyroid Stimulating Hormone (TSH) 1.310 uIu/ml Urine Color YELLOW Urine Appearance CLEAR Urine pH 5.0 Urine Specific [place] > 1.045 Urine Protein 2+ Urine Glucose (UA) NEG Urine Ketones NEG Urine Occult Blood NEG Urine Nitrite POS Urine Bilirubin NEG Urine Urobilinogen NEG Urine Leukocyte Esterase NEG Urine WBC (Auto) 5-10 /hpf Urine RBC (Auto) 0-4 /hpf Urine Hyaline Casts (Auto) 5-10 /lpf Urine Epithelial Cells (Auto) >30 /lpf Urine Bacteria (Auto) 1+ Test 01/18/17 02:49 01/18/17 05:45 01/18/17 10:00 Bedside Glucose 126 mg/dl White Blood Count 18.63 K/uL Red Blood Count 4.30 M/uL Hemoglobin 12.9 g/dL Hematocrit 41.2 % Mean Corpuscular Volume 95.8 fL Mean Corpuscular Hemoglobin 30.0 pg Mean Corpuscular Hemoglobin Concent 31.3 g/dl Platelet Count 198 K/uL Mean Platelet Volume 10.7 fL Neutrophils (%) (Auto) 61.4 % Lymphocytes (%) (Auto) 34.0 % Monocytes (%) (Auto) 3.6 % Eosinophils (%) (Auto) 0.3 % Basophils (%) (Auto) 0.1 % Neutrophils # (Auto) 11.43 K/uL Lymphocytes # (Auto) 6.34 K/uL Monocytes # (Auto) 0.67 K/uL Eosinophils # (Auto) 0.05 K/uL Basophils # (Auto) 0.02 K/uL RDW Standard Deviation 58.8 fL RDW Coefficient of Variation 17.0 % Immature Granulocyte % (Auto) 0.6 % Immature Granulocyte # (Auto) 0.12 K/uL Venous Blood pH 7.34 Venous Blood Partial Pressure CO2 51 mmHg Venous Blood Partial Pressure O2 29 mmHg Venous Blood HCO3 27 mmol/L Venous Blood Oxygen Saturation < 60.0 % Venous Blood Base Excess 0.4 mEq/L Sodium Level 139 mmol/L Potassium Level 5.1 mmol/L Chloride Level 104 mmol/L Carbon Dioxide Level 28 mmol/L Anion Gap 7.0 mmol/L Blood Urea Nitrogen 27 mg/dl Creatinine 1.22 mg/dl Est Creatinine Clear Calc Drug Dose 40.6 ml/min Estimated GFR () 49.1 Estimated GFR (Non- 42.4 BUN/Creatinine Ratio 22.3 Random Glucose 149 mg/dl Lactic Acid Level 2.1 mmol/L Calcium Level 9.0 mg/dl Phosphorus Level 3.7 mg/dl Magnesium Level 2.0 mg/dl Total Bilirubin 0.3 mg/dl Direct Bilirubin < 0.1 mg/dl Aspartate Amino Transf (AST/SGOT) 41 U/L Alanine Aminotransferase (ALT/SGPT) 41 U/L Alkaline Phosphatase 75 U/L Troponin I 2.730 ng/ml Total Protein 7.7 gm/dl Albumin 4.0 gm/dl Triglycerides Level 88 mg/dl Cholesterol Level 192 mg/dl HDL Cholesterol 51 mg/dl LDL Cholesterol, Calculated 123 mg/dl VLDL Cholesterol, Calculated 18 mg/dl Cholesterol/HDL Ratio 3.8 Date/Time Source Procedure Growth Status 01/17/17 22:48 Blood Blood Culture Pending Received 01/17/17 22:42 Blood Blood Culture Pending Received 01/18/17 02:20 Nasal MRSA DNA Surveillance Screen - Final Specimen Negative for MRSA by DNA Probe Complete 01/18/17 02:30 Urine , Clean Catch Urine Culture Pending Received Assessment & Plan Acute hypoxemic respiratory failure Acute decompensated systolic CHF exacerbation CXR showed Congestive heart failure versus pulmonary edema CTA chest showed no evidence for aneurysm or dissection. Received lasix 40mg IV cardiology consulted Clinically improved ECHO showed * Left ventricular systolic function is borderline reduced. * The qualitative EF is 50% * Septal and apical motion is consistent with conduction abnormality. * The aortic valve is moderately to severely calcified. * Doppler and 2D imaging of the aortic valve are discordant. Moderate to borderline severe aortic stenosis is suspected. * Mild aortic regurgitation. * There is moderate mitral regurgitation. Unstable wide complex tachycardia. Atrial flutter vs SVT Rate in control on Amiodarone Convert back to Normal sinus rhythm [id number] score 4 On heparin drip Continue aspirin In the ICU in case she needed to cardiovert Continue metoprolol 12.5 mg BID Cardiology on board Elevated Troponin Non-ST elevation myocardial infarction secondary to demand ischemia Troponin increased to 2.7 Follow next trop set On heparin drip, asa and metoprolol Cardiology recommended LUCAS and cardiac cath during this hospitalization She is reluctant to do any invasive procedure at this time because she has to go back to [place] on Thursday. Pt understands the risks for traveling to [place] such as [place] and even continue monitor Chest Pain Need to R/O ACS EKG showed ST changes in lead 2 and 3 Troponin trending up to 2.7 Denies any chest pain currently On heparin drip Follow up next trop level Elevated WBC possible reactive Elevated lactic acid Afebrile, procalcitonin normal urine cx and blood cx pending Zosyn was discontinued Elevated Lactic Acid Possible related to hypoxia due to CHF exacerbation CXR showed no infiltrate Lactic acid trending down Afebrile, No source of infection Abx was discontinued HTN BP stable continue felodipine and metoprolol 12.5 mg BID Candesartan on hold Continue monitor BP DM2 HBa1c pending diet controlled Continue monitor BS Acute renal failure Creatine on admission 1.38 Unknown baseline Creatine improved to 1.22 Hold Candesartan Monitor BMP Tobacco abuse On nicotine patch Counseling on smoking cessation DVT px on heparin drip CODE STATUS FULL CODE DISPOSITION Will transfer to telemetry Consultants: Cardiology Critical care Current Inpatient Medications: Current Inpatient Medications Medications (Trade) Dose Ordered Sig/Vanessa Route Start Time Stop Time Status Last Admin Dose Admin Ioversol (Optiray 320) 125 ml UD PRN IV 01/18/17 00:30 01/22/17 00:29 Acetaminophen (Tylenol Tab) 650 mg Q4H PRN PO 01/18/17 00:45 02/17/17 00:44 Nitroglycerin (Nitrostat Tab) 0.4 mg UD PRN SL 01/18/17 00:45 02/17/17 00:44 Insulin Glargine (Lantus Solostar Pen) 10 units DAILY SC 01/19/17 09:00 02/18/17 08:59 Insulin Aspart (novoLOG ASPART) SLIDING SCALE If C... ACHS SC 01/18/17 06:45 02/17/17 06:59 Glucose (Glucose 40% Gel) 15-30 GRAMS 15 GRAMS... UD PRN PO 01/18/17 00:45 02/17/17 00:44 Glucose (Glucose Chew Tab) 4-8 Tablets 4 Tabl... UD PRN PO 01/18/17 00:45 02/17/17 00:44 Dextrose (Dextrose 50% 50ML Syringe) 25-50ML OF 50% DW IV FOR... UD PRN IV 01/18/17 00:45 02/17/17 00:44 Glucagon (Glucagon Inj) 1 mg UD PRN SQ 01/18/17 00:45 02/17/17 00:44 Hydromorphone HCl (Dilaudid Inj) 0.5 mg Q3H PRN IV 01/18/17 00:45 02/01/17 00:44 Nicotine (Nicoderm Cq 7 Mg Patch) 1 patch QAM TD 01/18/17 09:00 02/17/17 08:59 Miscellaneous (Remove Nicoderm Patch) 1 ea HS N/A 01/18/17 21:00 02/17/17 20:59 Promethazine HCl 12.5 mg/Sodium Chloride 50.5 ml @ 204 mls/hr Q6H PRN IV 01/18/17 00:45 02/17/17 00:44 Allopurinol (Zyloprim Tab) 300 mg BID PO 01/18/17 09:00 02/17/17 08:59 01/18/17 08:17 300 MG Felodipine (Plendil Tabcr) 5 mg DAILY PO 01/18/17 09:00 02/17/17 08:59 01/18/17 08:17 5 MG Amiodarone HCL/ Dextrose 200 ml @ 16.7 mls/hr [id number] IV 01/18/17 05:30 02/17/17 05:29 01/18/17 05:42 16.7 MLS/HR Ipratropium [place] (Atrovent 0.02% 0.5MG/2.5ML Neb) 0.5 mg Q4H PRN INH 01/18/17 01:00 02/17/17 00:59 Levalbuterol (Xopenex 1.25MG/ 0.5ML Neb) 1.25 mg Q4H PRN INH 01/18/17 01:00 02/17/17 00:59 Aspirin (Ecotrin Tab) 81 mg QAM PO 01/19/17 09:00 02/18/17 08:59 Heparin Sodium/ Dextrose 500 ml @ 24 mls/hr [id number] PRN IV 01/18/17 02:45 02/17/17 02:44 01/18/17 03:49 24 MLS/HR Ipratropium [place] (Atrovent 0.02% 0.5MG/2.5ML Neb) 0.5 mg Q6R INH 01/18/17 09:00 02/17/17 08:59 01/18/17 07:46 0.5 MG Levalbuterol (Xopenex 1.25MG/ 0.5ML Neb) 1.25 mg Q6R INH 01/18/17 09:00 02/17/17 08:59 01/18/17 07:46 1.25 MG Metoprolol Tartrate (Lopressor Tab) 12.5 mg BID PO 01/18/17 21:00 02/17/17 20:59
--- NOTE | 2017-01-18 14:44 | DIAGNOSTIC IMAGING REPORT ---
CHEST ONE VIEW PORTABLE CLINICAL HISTORY: Fluid Overload dyspnea COMPARISON STUDY: 01/17/2017 FINDINGS: Improving findings of congestive heart failure. Slight decrease in cardiac size as well as prominence of pulmonary vasculature. IMPRESSION: Improving components of congestive failure The above report was generated using voice recognition software. It may contain grammatical, syntax or spelling errors. Electronically signed by: Chente Mendez M.D. 01/18/2017 2:43 PM Dictated Date/Time: 01/18/2017 2:43 PM
[2017-01-18 15:00] LABS: LYME DISEASE AB IGG NEG (NEG); LYME DISEASE AB IGM NEG (NEG)
[2017-01-18] MEDS: METOPROLOL TARTRATE 25 MG TAB PO SCH (20:46)
[2017-01-18 21:53] LABS: INFLUENZA A PCR Neg for Influ A (NEG); INFLUENZA B PCR Neg for Influ B (NEG)
[2017-01-19] VITALS (19 sets, daily range): BP systolic 101–149; BP diastolic 41–86; PULSE 63–85; TEMP 36.4–37.3; O2SAT 91–98; Ht 165.1 cm; Wt 81.9 kg
[2017-01-19] MEDS: HEPARIN 25,000 UNIT/500ML D5W 500 ML IV PRN ×2 (00:40→21:20)
[2017-01-19] MEDS ORDERED: LORAZEPAM 0.5 MG TAB PO ONE (00:45)
[2017-01-19] MEDS: IPRATROPIUM BROMIDE NEB SOLN 0.02% 2.5 ML VIAL INH SCH ×4 (02:10→19:39)
[2017-01-19] MEDS: LEVALBUTEROL 1.25MG/0.5ML NEB INH SCH ×4 (02:10→19:39)
[2017-01-19] MEDS: AMIODARONE / D5W 200 ML IV SCH (03:49)
[2017-01-19 06:13] LABS: HEMATOCRIT 37.2 % (37-47); MEAN CELL VOLUME 92.1 fL (80-100); MEAN CORPUSCULAR HEMOGLOBIN 30.7 pg (25-34); MEAN CORPUSCULAR HGB CONC 33.3 g/dl (32-36); MEAN PLATELET VOLUME 11.5 fL (7.4-10.4); PLATELET COUNT 196 K/uL (130-400); RED BLOOD COUNT 4.04 M/uL (4.2-5.4); WHITE BLOOD COUNT 20.24 K/uL (4.8-10.8)
[2017-01-19 06:22] LABS: ESTIMATED AVERAGE GLUCOSE 143 mg/dl; HA1C FLAG Normal (Normal)
[2017-01-19 06:48] LABS: BUN/CREATININE RATIO 28.2 (10-20); CALCIUM 8.9 mg/dl (8.5-10.1); CREATININE 1.33 mg/dl (0.60-1.20)
[2017-01-19 07:27] LABS: BASO ABS # 0.01 K/uL (0-0.2); COMPLETE YES; IG% 0.4 %; LYMPH % 34.5 %; LYMPH ABS # 6.99 K/uL (1.2-3.4); MONO % 7.4 %; NEUT % 57.7 %
[2017-01-19] MEDS: ASPIRIN 81 MG ECTAB PO SCH (08:19)
[2017-01-19] MEDS: METOPROLOL TARTRATE 25 MG TAB PO SCH ×2 (08:20→21:04)
[2017-01-19] MEDS: FELODIPINE 5 MG TABCR PO SCH (08:20)
[2017-01-19] MEDS: ALLOPURINOL 300 MG TAB PO SCH ×2 (08:21→21:04)
[2017-01-19 08:27] LABS: PARTIAL THROMBOPLASTIN RATIO 2.2
[2017-01-19] MEDS: INSULIN ASPART 100 UNITS/ML 3 ML PEN SC SCH ×4 (08:29→20:57)
[2017-01-19] MEDS: NICOTINE 7 MG/24 HR TDSY TD SCH (08:30)
--- NOTE | 2017-01-19 09:37 | Cardiology Follow-Up ---
Subjective General Date of Service: Jan 19, 2017. Pt evaluation today including: conversation w/ patient, physical exam, chart review, lab review, review of studies, review of inpatient medication list History of Present Illness The patient is a 76 year old female seen in follow up. Feeling well from a cardiovascular standpoint. No recurrent atrial fibrillation on telemetry. Tolerating intravenous heparin and amiodarone infusions. Denies chest pain or shortness of breath. No palpitations, lightheadedness, or dizziness. Patient has changed her mind regarding further testing. She is willing to stay in hospital until all cardiovascular testing has been completed. Allergies Coded Allergies: No Known Allergies (Unverified , 01/17/17) Social History Smoking Status: Current Every Day Smoker (6 cigarretes daily) Hx Tobacco Use In Past Year?: Yes Hx Alcohol Use - Type And Amou: Yes (1 glass wine per day.) Hx Substance Use - Type And Am: No Problem List Medical Problems: (1) Atrial fibrillation with RVR Status: Acute (2) CHF (congestive heart failure) Status: Acute (3) Respiratory failure with hypoxia Status: Acute Review of Systems Respiratory: + dyspnea on exertion, No cough, No sputum, No wheezing, No shortness of breath, No dyspnea at rest, No hemoptysis Cardiac: No chest pain, No orthopnea, No PND, No edema, No claudication, No palpitations Physical Exam Vital Signs Last Vital Signs Documentation Date Time Temp Pulse Resp B/P (MAP) Pulse Ox O2 Delivery O2 Flow Rate FiO2 01/19/17 07:36 36.6 63 18 149/86 (107) 91 Room Air 01/18/17 08:00 2.0 01/17/17 22:10 100 Physical Exam Constitutional: General Apperance: well-developed Level of Distress: NAD Head: normocephalic, atraumatic ENMT: normal ENT inspection Lungs: Auscultation: no wheezing, no rales/crackles, no rhonchi Cardiovascular: Heart Auscultation: RRR, normal S1, normal S2, III/ JAYDA Peripheral Pulses: Radial Pulse: normal on the right Femoral Pulse: normal on the right Abdomen: Bowel Sounds: normal Inspection & Palpation: soft, non-distended, no tenderness, guarding & rebound Extremities: no cyanosis, no edema, no clubbing, no ulcers Neurologic: Gait & Station: pertinent finding (no focal motor deficit) Cranial Nerves: grossly intact Assessment and Plan Assessment and Plan Final impression: 1. Paroxysmal atrial fibrillation with rapid ventricular response 2. NSTEMI - suspect demand ischemia 3. Aortic stenosis - possibly severe 4. CKD - creatinine stable today 5. Leukocytosis - etiology unclear Plan/recommendations: Telemetry reviewed demonstrating atrial fibrillation with rapid ventricular response. Potential stroke risk discussed with patient. Recommend oral anticoagulation. She'll continue intravenous heparin as an inpatient. Her aortic stenosis requires further evaluation at this time. I recommend a transesophageal echo cardiography. The risks, benefits, alternatives were discussed at length. She is agreeable. We also discussed further ischemic evaluation given elevated troponins, abnormal ECG, and borderline reduced LV systolic function. The risks, benefits, and alternatives to cardiac catheterization were also reviewed. Patient agreeable. I plan to perform transesophageal echo later today with the aid of anesthesia. Cardiac catheterization to be performed in the next 24-48 hours. Intravenous amiodarone will be discontinued in favor of by mouth amiodarone at this time. She'll continue aspirin and statin therapy as previously ordered. Repeat basic metabolic panel in the a.m. Anesthesia consulted. Laboratory Results Last 24 Hours Test 01/18/17 10:35 01/18/17 11:32 01/18/17 13:52 01/18/17 16:14 Activated Partial Thromboplast Time 58.5 SECONDS Partial Thromboplastin Ratio 2.3 Troponin I 2.370 ng/ml Bedside Glucose 259 mg/dl 195 mg/dl Lyme Disease IgG Antibody NEG Lyme Disease IgM Antibody NEG Test 01/18/17 19:55 01/18/17 20:40 01/19/17 05:23 01/19/17 06:38 Influenza Type A (RT-PCR) Neg for Influ A Influenza Type A Antigen Neg for Influ A Influenza Type B Antigen Neg for Influ B Influenza Type B (RT-PCR) Neg for Influ B Bedside Glucose 159 mg/dl 153 mg/dl White Blood Count 20.24 K/uL Red Blood Count 4.04 M/uL Hemoglobin 12.4 g/dL Hematocrit 37.2 % Mean Corpuscular Volume 92.1 fL Mean Corpuscular Hemoglobin 30.7 pg Mean Corpuscular Hemoglobin Concent 33.3 g/dl Platelet Count 196 K/uL Mean Platelet Volume 11.5 fL Neutrophils (%) (Auto) 57.7 % Lymphocytes (%) (Auto) 34.5 % Monocytes (%) (Auto) 7.4 % Eosinophils (%) (Auto) 0.0 % Basophils (%) (Auto) 0.0 % Neutrophils # (Auto) 11.66 K/uL Lymphocytes # (Auto) 6.99 K/uL Monocytes # (Auto) 1.49 K/uL Eosinophils # (Auto) 0.00 K/uL Basophils # (Auto) 0.01 K/uL RDW Standard Deviation 55.0 fL RDW Coefficient of Variation 16.5 % Immature Granulocyte % (Auto) 0.4 % Immature Granulocyte # (Auto) 0.09 K/uL Sodium Level 136 mmol/L Potassium Level 4.0 mmol/L Chloride Level 99 mmol/L Carbon Dioxide Level 25 mmol/L Anion Gap 12.0 mmol/L Blood Urea Nitrogen 38 mg/dl Creatinine 1.33 mg/dl Est Creatinine Clear Calc Drug Dose 36.9 ml/min Estimated GFR () 44.3 Estimated GFR (Non- 38.2 BUN/Creatinine Ratio 28.2 Random Glucose 159 mg/dl Calcium Level 8.9 mg/dl Test 01/19/17 08:00 01/19/17 08:17 Activated Partial Thromboplast Time 57.8 SECONDS Partial Thromboplastin Ratio 2.2 Procalcitonin 0.11 ng/ml
[2017-01-19] MEDS: INSULIN GLARGINE SOLOSTAR 100 UNITS/ML 3 ML PEN SC SCH (10:13)
[2017-01-19] MEDS ORDERED: AMIODARONE 200 MG TAB PO ONE (10:15)
[2017-01-19] MEDS ORDERED: FENTANYL CITRATE INJ 50 MCG/1 ML 2 ML VIAL ONE (14:41)
[2017-01-19] MEDS ORDERED: PROPOFOL IV EMULSION 10 MG/ML 20 ML VIAL IV ONE (14:41)
[2017-01-19] MEDS ORDERED: LIDOCAINE HCL 2% 2 ML VIAL (20MG/ML) ONE ×2 (14:41→14:48)
[2017-01-19] MEDS ORDERED: PHENYLEPHRINE HCL INJ 10 MG/ML VIAL ONE (14:41)
[2017-01-19] MEDS ORDERED: KETAMINE HCL INJ 50 MG/ML 10 ML VIAL ONE (16:03)
[2017-01-19] MEDS ORDERED: MIDAZOLAM HCL 1 MG/ML 2ML VIAL ONE (16:03)
--- NOTE | 2017-01-19 16:44 | [facility] Post Operative Brief Note ---
Immediate Operative Summary Operative Date Jan 19, 2017. Pre-Operative Diagnosis aortic stenosis Post-Operative Diagnosis Aortic stenosis Procedure(s) Performed transesophageal echo Surgeon Dr. Andi Adames Case Monitor Surgeon(s) none Estimated Blood Loss none Findings Moderate calcific aortic stenosis Specimens none Anesthesia sedation per anesthesia Complication(s) None Disposition PCU
--- NOTE | 2017-01-19 17:11 | Anesthesiology Progress Note ---
Anesthesia Post Op Note Date & Time Jan 19, 2017 at 17:11 Vital Signs Pain Intensity: 0 Vital Signs Past 12 Hours Date Time Temp Pulse Resp B/P (MAP) Pulse Ox O2 Delivery O2 Flow Rate FiO2 01/19/17 16:59 36.4 69 20 124/66 (85) 91 Room Air 01/19/17 16:50 68 18 120/62 (81) 94 Room Air 01/19/17 16:40 71 18 118/62 (80) 94 Room Air 01/19/17 16:35 75 16 134/69 95 Nasal Cannula 2 01/19/17 16:30 85 16 120/70 95 Nasal Cannula 2 01/19/17 16:25 69 16 101/54 95 Nasal Cannula 2 01/19/17 16:20 68 16 115/45 95 Nasal Cannula 2 01/19/17 16:15 73 16 139/61 98 Nasal Cannula 2 01/19/17 16:10 77 16 111/60 98 Nasal Cannula 2 01/19/17 16:05 71 16 132/41 96 Nasal Cannula 2 01/19/17 16:00 76 16 124/54 96 Nasal Cannula 2 01/19/17 14:12 67 16 92 Room Air 01/19/17 12:00 Room Air 01/19/17 11:25 36.7 64 19 113/53 (73) 92 Room Air 01/19/17 10:44 63 91 01/19/17 08:00 Room Air 01/19/17 07:36 36.6 63 18 149/86 (107) 91 Room Air 01/19/17 07:11 63 16 91 Room Air Notes Mental Status: alert / awake / arousable, participated in evaluation Pt Amnestic to Procedure: Yes Nausea / Vomiting: adequately controlled Pain: adequately controlled Airway Patency, RR, SpO2: stable & adequate BP & HR: stable & adequate Hydration State: stable & adequate Anesthetic Complications: no major complications apparent
--- NOTE | 2017-01-19 17:17 | TEE ---
*NOTICE TO RECEIVING [employer] This information is strictly Confidential and protected under [place] law. [place] law prohibits you from making any further disclosure of this information unless further disclosure is expressly permitted by the written consent of the person to whom it pertains or is authorized by law. A general authorization for the release of medical or other information is not sufficient for this purpose. Hospital accepts no responsibility if the information is made available to any other person, INCLUDING THE PATIENT. Interpretation Summary * Name: NATASHA KEATING Study Date: 01/19/2017 03:08 PM BP: 136/57 mmHg * Patient Location: C.2T\S\S231\S\1 HR: 73 * : 1940 (M/d/yyy) Gender: Female Height: 65 in * Age: 76 yrs Ethnicity: [place] Weight: 180 lb * Ordering Physician: Jeffery Adames * Referring Physician: Self, Referred * Performed By: Shaina Martinez RDCS * * Reason For Study: AORTIC STENOSIS * BSA: 1.9 m2 * START TIME 16:08 * END TIME 16:35 * -- Conclusions -- * There is severe calcific aortic valve stenosis. * SHERON 0.88cm2 per 2D planimetry. * Ejection Fraction = 55-60%. * There is mild concentric left ventricular hypertrophy. * Septal motion is consistent with conduction abnormality. * Mitral valve leaflets are moderately thickened and mildly calcified. * There is mild mitral regurgitation. * There is mild tricuspid regurgitation. * Doppler findings do not suggest pulmonary hypertension. * Severe atherosclerotic plaque(s) in the descending aorta. Procedure Details * LUCAS Probe #1 utilized for procedure. * The study was performed in Cardiac Catheterization Lab. * Time out was conducted by the physician, nurse, and vehicle technician with positive identification of patient and procedure. * Informed consent for Transesophageal Echocardiogram was obtained prior to the procedure. * An intravenous line was placed. A topical anesthetic agent was used for oropharangeal anesthesia. A bite block was inserted. * Sedation performed by the anesthesia department. * The patient's vital signs, including blood pressure, heart rate, pulse oximetry and cardiac rhythm were monitored throughout the procedure . * The posterior oropharynx was anesthetized using a topical anesthetic spray. A bite guard was inserted. * A multifrequency, multiplane transesopheageal echocardiographic endoscope was inserted and manipulated in the standard fashion to achieve multiplane views. * The transesophageal probe was passed without difficulty. * The usual views were obtained; basal, mid-esophageal, transgastric and aortic views. * The patient tolerated the procedure well without evidence of orophangeal or esophageal trauma. * A 2D transesophageal echocardiogram with spectral and color flow Doppler was performed. * Contrast injection with agitated saline was performed. Left Ventricle * The left ventricle is normal in size. * There is mild concentric left ventricular hypertrophy. * Ejection Fraction = 55-60%. * Septal motion is consistent with conduction abnormality. Right Ventricle * The right ventricular cavity size is normal (basal dimension <4.2 cm in right ventricular apical 4-chamber view). * The right ventricular systolic function is normal. Atria * The left atrium is mildly dilated. * No thrombus is detected in the left atrial appendage. * Right atrial size is normal. * The interatrial septum is intact with no evidence for an atrial septal defect. Mitral Valve * There is mild to moderate mitral annular calcification. * Mitral valve leaflets are moderately thickened and mildly calcified. * There is no mitral valve stenosis. * There is mild mitral regurgitation. Tricuspid Valve * The tricuspid valve anatomy is normal. * There is no tricuspid stenosis. * There is mild tricuspid regurgitation. * Doppler findings do not suggest pulmonary hypertension. Aortic Valve * The aortic valve is moderately calcified with partial fusion of the right and non-coronary cusps. * There is severe calcific aortic valve stenosis. * SHERON 0.88cm2 per 2D planimetry. * There is no significant aortic regurgitation. Pulmonic Valve * The pulmonic valve is not well seen, but is grossly normal. * There is no pulmonic valvular stenosis. * Trace pulmonic valvular regurgitation. Great Vessels * Normal aortic root and ascending aortic diameter. * Severe atherosclerotic plaque(s) in the descending aorta. Pericardium * There is no pericardial effusion.
[2017-01-19] MEDS ORDERED: NURSING VERBAL MED ORDER ONE (17:30)
--- NOTE | 2017-01-19 18:09 | Progress Note ---
Medicine Progress Note Date & Time of Visit: Jan 19, 2017 at 10:54. Subjective Pt was seen and examined Lying in bed with no distress Denies any chest pain, palpitation, dizziness and SOB Objective Last 8 Hrs Date Time Temp Pulse Resp B/P (MAP) Pulse Ox O2 Delivery O2 Flow Rate FiO2 01/19/17 16:59 36.4 69 20 124/66 (85) 91 Room Air 01/19/17 16:50 68 18 120/62 (81) 94 Room Air 01/19/17 16:40 71 18 118/62 (80) 94 Room Air 01/19/17 16:35 75 16 134/69 95 Nasal Cannula 2 01/19/17 16:30 85 16 120/70 95 Nasal Cannula 2 01/19/17 16:25 69 16 101/54 95 Nasal Cannula 2 01/19/17 16:20 68 16 115/45 95 Nasal Cannula 2 01/19/17 16:15 73 16 139/61 98 Nasal Cannula 2 01/19/17 16:10 77 16 111/60 98 Nasal Cannula 2 01/19/17 16:05 71 16 132/41 96 Nasal Cannula 2 01/19/17 16:00 76 16 124/54 96 Nasal Cannula 2 01/19/17 14:12 67 16 92 Room Air 01/19/17 12:00 Room Air 01/19/17 11:25 36.7 64 19 113/53 (73) 92 Room Air 01/19/17 10:44 63 91 Physical Exam: General- No acute distress Head- atraumatic Eyes- PERRL, EOMI ENT- oropharynx clear Neck- supple, no JVD Lungs- No wheezing, no crackle Heart- regular rhythm, +systolic murmur Abdomen- normal bowel sounds, soft Extremities- no calf tenderness Neuro- alert, oriented x 3; PERRL, EOMI; no facial palsy; Skin- warm & dry Laboratory Results: Last 24 Hours Test 01/18/17 19:55 01/18/17 20:40 01/19/17 05:23 01/19/17 06:38 Influenza Type A (RT-PCR) Neg for Influ A Influenza Type A Antigen Neg for Influ A Influenza Type B Antigen Neg for Influ B Influenza Type B (RT-PCR) Neg for Influ B Bedside Glucose 159 mg/dl 153 mg/dl White Blood Count 20.24 K/uL Red Blood Count 4.04 M/uL Hemoglobin 12.4 g/dL Hematocrit 37.2 % Mean Corpuscular Volume 92.1 fL Mean Corpuscular Hemoglobin 30.7 pg Mean Corpuscular Hemoglobin Concent 33.3 g/dl Platelet Count 196 K/uL Mean Platelet Volume 11.5 fL Neutrophils (%) (Auto) 57.7 % Lymphocytes (%) (Auto) 34.5 % Monocytes (%) (Auto) 7.4 % Eosinophils (%) (Auto) 0.0 % Basophils (%) (Auto) 0.0 % Neutrophils # (Auto) 11.66 K/uL Lymphocytes # (Auto) 6.99 K/uL Monocytes # (Auto) 1.49 K/uL Eosinophils # (Auto) 0.00 K/uL Basophils # (Auto) 0.01 K/uL RDW Standard Deviation 55.0 fL RDW Coefficient of Variation 16.5 % Immature Granulocyte % (Auto) 0.4 % Immature Granulocyte # (Auto) 0.09 K/uL Sodium Level 136 mmol/L Potassium Level 4.0 mmol/L Chloride Level 99 mmol/L Carbon Dioxide Level 25 mmol/L Anion Gap 12.0 mmol/L Blood Urea Nitrogen 38 mg/dl Creatinine 1.33 mg/dl Est Creatinine Clear Calc Drug Dose 36.9 ml/min Estimated GFR () 44.3 Estimated GFR (Non- 38.2 BUN/Creatinine Ratio 28.2 Random Glucose 159 mg/dl Calcium Level 8.9 mg/dl Test 01/19/17 08:00 01/19/17 08:17 01/19/17 11:16 01/19/17 17:07 Activated Partial Thromboplast Time 57.8 SECONDS Partial Thromboplastin Ratio 2.2 Procalcitonin 0.11 ng/ml Bedside Glucose 121 mg/dl 136 mg/dl Assessment & Plan Acute hypoxemic respiratory failure Acute decompensated systolic CHF exacerbation CXR showed Congestive heart failure versus pulmonary edema CTA chest showed no evidence for aneurysm or dissection. Received lasix 40mg IV cardiology consulted Clinically improved Stable ECHO showed * Left ventricular systolic function is borderline reduced. * The qualitative EF is 50% * Septal and apical motion is consistent with conduction abnormality. * The aortic valve is moderately to severely calcified. * Doppler and 2D imaging of the aortic valve are discordant. Moderate to borderline severe aortic stenosis is suspected. * Mild aortic regurgitation. * There is moderate mitral regurgitation. Atrial Fib Rate in control on Amiodarone Convert back to Normal sinus rhythm [id number] score 4 On heparin drip Continue aspirin In the ICU in case she needed to cardiovert Continue metoprolol 12.5 mg BID Cardiology on board Amiodarone drip discontinued Starting on PO amiodarone Will need to start on PO anticoagulant to decrease risk of stroke Continue monitor in tele Elevated Troponin Non-ST elevation myocardial infarction secondary to demand ischemia Troponin increased to 2.7 Follow next trop set On heparin drip, asa and metoprolol Cardiology recommended LUCAS and cardiac cath during this hospitalization She is reluctant to do any invasive procedure at this time because she has to go back to [place] on Thursday. Pt understands the risks for traveling to [place] such as [place] and even continue monitor 01/19 Agreed to get cardio work up done LUCAS done this afternoon Plan for cardiac cath tomorrow Will keep NPO after midnight LUCAS showed * There is severe calcific aortic valve stenosis. * SHERON 0.88cm2 per 2D planimetry. * Ejection Fraction = 55-60%. * There is mild concentric left ventricular hypertrophy. * Septal motion is consistent with conduction abnormality. * Mitral valve leaflets are moderately thickened and mildly calcified. * There is mild mitral regurgitation. * There is mild tricuspid regurgitation. * Doppler findings do not suggest pulmonary hypertension. * Severe atherosclerotic plaque(s) in the descending aorta. Chest Pain Need to R/O ACS EKG showed ST changes in lead 2 and 3 On metoprolol Troponin trending up to 2.7 Denies any chest pain currently Continue heparin drip Follow up next trop level Resolved cardiac cath in am Elevated WBC possible reactive Elevated lactic acid Afebrile, procalcitonin normal urine cx and blood cx pending Zosyn was discontinued 01/19 WBC trending back up Afebrile blood cx showed no growth repeat procalcitonin no growth Monitor cbc check peripheral smear if spike fever, check blood cx and restart abx Elevated Lactic Acid Possible related to hypoxia due to CHF exacerbation CXR showed no infiltrate Lactic acid trending down Afebrile, No source of infection Abx was discontinued WBC trending up today HTN BP stable continue felodipine and metoprolol 12.5 mg BID Candesartan on hold Continue monitor BP DM2 HBa1c pending diet controlled Continue monitor BS Acute renal failure Creatine on admission 1.38 Unknown baseline Creatine improved to 1.3 Hold Candesartan Monitor BMP Tobacco abuse On nicotine patch Counseling on smoking cessation DVT px on heparin drip CODE STATUS FULL CODE DISPOSITION cardiac cath tomorrow Consultants: Cardiology Critical care Current Inpatient Medications: Current Inpatient Medications Medications (Trade) Dose Ordered Sig/Vanessa Route Start Time Stop Time Status Last Admin Dose Admin Ioversol (Optiray 320) 125 ml UD PRN IV 01/18/17 00:30 01/22/17 00:29 Acetaminophen (Tylenol Tab) 650 mg Q4H PRN PO 01/18/17 00:45 02/17/17 00:44 Nitroglycerin (Nitrostat Tab) 0.4 mg UD PRN SL 01/18/17 00:45 02/17/17 00:44 Insulin Glargine (Lantus Solostar Pen) 10 units DAILY SC 01/19/17 09:00 02/18/17 08:59 01/19/17 10:13 10 UNITS Insulin Aspart (novoLOG ASPART) SLIDING SCALE If C... ACHS SC 01/18/17 06:45 02/17/17 06:59 01/19/17 08:29 3 UNITS Glucose (Glucose 40% Gel) 15-30 GRAMS 15 GRAMS... UD PRN PO 01/18/17 00:45 02/17/17 00:44 Glucose (Glucose Chew Tab) 4-8 Tablets 4 Tabl... UD PRN PO 01/18/17 00:45 02/17/17 00:44 Dextrose (Dextrose 50% 50ML Syringe) 25-50ML OF 50% DW IV FOR... UD PRN IV 01/18/17 00:45 02/17/17 00:44 Glucagon (Glucagon Inj) 1 mg UD PRN SQ 01/18/17 00:45 02/17/17 00:44 Hydromorphone HCl (Dilaudid Inj) 0.5 mg Q3H PRN IV 01/18/17 00:45 02/01/17 00:44 Nicotine (Nicoderm Cq 7 Mg Patch) 1 patch QAM TD 01/18/17 09:00 02/17/17 08:59 Miscellaneous (Remove Nicoderm Patch) 1 ea HS N/A 01/18/17 21:00 02/17/17 20:59 Promethazine HCl 12.5 mg/Sodium Chloride 50.5 ml @ 204 mls/hr Q6H PRN IV 01/18/17 00:45 02/17/17 00:44 Allopurinol (Zyloprim Tab) 300 mg BID PO 01/18/17 09:00 02/17/17 08:59 01/19/17 08:21 300 MG Felodipine (Plendil Tabcr) 5 mg DAILY PO 01/18/17 09:00 02/17/17 08:59 01/19/17 08:20 5 MG Ipratropium [place] (Atrovent 0.02% 0.5MG/2.5ML Neb) 0.5 mg Q4H PRN INH 01/18/17 01:00 02/17/17 00:59 Levalbuterol (Xopenex 1.25MG/ 0.5ML Neb) 1.25 mg Q4H PRN INH 01/18/17 01:00 02/17/17 00:59 Aspirin (Ecotrin Tab) 81 mg QAM PO 01/19/17 09:00 02/18/17 08:59 01/19/17 08:19 81 MG Heparin Sodium/ Dextrose 500 ml @ 24 mls/hr [id number] PRN IV 01/18/17 02:45 02/17/17 02:44 01/19/17 00:40 24 MLS/HR Ipratropium [place] (Atrovent 0.02% 0.5MG/2.5ML Neb) 0.5 mg Q6R INH 01/18/17 09:00 02/17/17 08:59 01/19/17 14:10 0.5 MG Levalbuterol (Xopenex 1.25MG/ 0.5ML Neb) 1.25 mg Q6R INH 01/18/17 09:00 02/17/17 08:59 01/19/17 14:10 1.25 MG Metoprolol Tartrate (Lopressor Tab) 12.5 mg BID PO 01/18/17 21:00 02/17/17 20:59 01/19/17 08:20 12.5 MG Amiodarone HCl (Cordarone Tab) 200 mg BID PO 01/19/17 21:00 02/18/17 20:59 Sodium Chloride 1,000 ml @ 70 mls/hr [id number] IV 01/20/17 00:00 02/19/17 00:00
--- NOTE | 2017-01-19 19:11 | DIAGNOSTIC IMAGING REPORT ---
CAROTID DOPPLER NECK ART HISTORY: Mental status change Bruit, , pre-op COMPARISON: None. TECHNIQUE: Real-time, grayscale, and color Doppler sonography of the carotid arteries was performed. Imaging reviewed in the transverse and longitudinal planes. All measurements were calculated based on NASCET criteria. FINDINGS: Antegrade flow is seen in the bilateral vertebral arteries. The brachial pressures are hemodynamically similar. The peak systolic velocity within the right ICA is 169. The right systolic ratio is 1.5. The peak systolic velocity within the left ICA is 85. The left systolic ratio is 0.9. IMPRESSION: 1. Moderate plaque formation bilaterally. 2. 50/60% stenosis right internal carotid artery. 3. No additional significant stenosis The above report was generated using voice recognition software. It may contain grammatical, syntax or spelling errors. Electronically signed by: Chente Mendez M.D. 01/19/2017 7:10 PM Dictated Date/Time: 01/19/2017 7:09 PM
[2017-01-19] MEDS ORDERED: LORAZEPAM 0.5 MG TAB PO PRN (20:15)
[2017-01-19] MEDS: AMIODARONE 200 MG TAB PO SCH (21:04)
[2017-01-19] MEDS: SODIUM CHLORIDE 0.9% 1000ML 1,000 ML IV SCH (23:29)
[2017-01-20] VITALS (21 sets, daily range): BP systolic 108–159; BP diastolic 54–89; PULSE 63–114; TEMP 36.5–36.7; O2SAT 90–100
[2017-01-20] MEDS: LEVALBUTEROL 1.25MG/0.5ML NEB INH SCH ×3 (02:03→14:29)
[2017-01-20] MEDS: IPRATROPIUM BROMIDE NEB SOLN 0.02% 2.5 ML VIAL INH SCH ×3 (02:03→14:29)
[2017-01-20 06:16] LABS: HEMATOCRIT 36.6 % (37-47); MEAN CELL VOLUME 93.8 fL (80-100); MEAN PLATELET VOLUME 10.9 fL (7.4-10.4); PLATELET COUNT 165 K/uL (130-400)
[2017-01-20 06:36] LABS: PARTIAL THROMBOPLASTIN RATIO 1.9
[2017-01-20 06:43] LABS: BUN/CREATININE RATIO 27.4 (10-20); CALCIUM 8.4 mg/dl (8.5-10.1); CREATININE 1.24 mg/dl (0.60-1.20); POTASSIUM 4.4 mmol/L (3.5-5.1)
[2017-01-20] MEDS: INSULIN ASPART 100 UNITS/ML 3 ML PEN SC SCH ×3 (07:00→18:04)
[2017-01-20] MEDS ORDERED: AMIODARONE 360MG / 200ML D5W ONE (07:23)
[2017-01-20] MEDS ORDERED: AMIODARONE 150MG / 100ML D5W ONE (07:23)
[2017-01-20] MEDS ORDERED: AMIODARONE / D5W 100 ML IV STA (07:25)
[2017-01-20] MEDS ORDERED: NURSING VERBAL MED ORDER ONE ×2 (07:30→15:15)
[2017-01-20] MEDS ORDERED: AMIODARONE / D5W 200 ML IV SCH ×2 (07:30→13:00)
[2017-01-20] MEDS: NICOTINE 7 MG/24 HR TDSY TD SCH (07:43)
[2017-01-20] MEDS: ASPIRIN 81 MG ECTAB PO SCH (07:55)
[2017-01-20] MEDS: AMIODARONE 200 MG TAB PO SCH (07:55)
[2017-01-20] MEDS: FELODIPINE 5 MG TABCR PO SCH (07:55)
[2017-01-20] MEDS: ALLOPURINOL 300 MG TAB PO SCH (07:55)
[2017-01-20] MEDS: METOPROLOL TARTRATE 25 MG TAB PO SCH (07:55)
[2017-01-20 08:24] LABS: BASO % 0.2 %; BASO ABS # 0.03 K/uL (0-0.2); EOS % 1.1 %; IG% 0.3 %; LYMPH % 53.2 %; LYMPH ABS # 7.92 K/uL (1.2-3.4); MONO % 6.9 %; NEUT % 38.3 %
[2017-01-20 09:06] LABS: COMPLETE YES
--- NOTE | 2017-01-20 09:21 | Cardiology Follow-Up ---
Subjective General Date of Service: Jan 20, 2017. Pt evaluation today including: conversation w/ patient, physical exam, chart review, lab review, review of studies, review of inpatient medication list History of Present Illness The patient is a 76 year old female seen in follow up. LUCAS demonstrated severe calcific . Patient converted to AF with RVR this AM. IV amiodarone restarted with 150mg bolus. Converted back to sinus rhythm with LBBB. Currently asymptomatic. Allergies Coded Allergies: No Known Allergies (Unverified , 01/17/17) Social History Smoking Status: Current Some Day Smoker Hx Tobacco Use In Past Year?: Yes Hx Alcohol Use - Type And Amou: Yes (1 glass wine per day.) Hx Substance Use - Type And Am: No Problem List Medical Problems: (1) Atrial fibrillation with RVR Status: Acute (2) CHF (congestive heart failure) Status: Acute (3) Respiratory failure with hypoxia Status: Acute Review of Systems Respiratory: + dyspnea on exertion, No cough, No wheezing, No shortness of breath, No dyspnea at rest Cardiac: + palpitations, No chest pain, No orthopnea, No PND, No edema Physical Exam Vital Signs Last Vital Signs Documentation Date Time Temp Pulse Resp B/P (MAP) Pulse Ox O2 Delivery O2 Flow Rate FiO2 01/20/17 07:37 77 16 94 Room Air 01/20/17 07:32 120/61 (80) 01/20/17 07:17 36.5 01/19/17 16:35 2 01/17/17 22:10 100 Physical Exam Constitutional: General Apperance: well-developed Level of Distress: NAD Head: normocephalic, atraumatic ENMT: normal ENT inspection Lungs: Auscultation: no wheezing, no rales/crackles, no rhonchi Cardiovascular: Heart Auscultation: normal S1, normal S2, III/ JAYDA, irregular rate rhythm Peripheral Pulses: Radial Pulse: normal on the left, normal on the right Femoral Pulse: normal on the left, normal on the right Abdomen: Bowel Sounds: normal Inspection & Palpation: soft, non-distended, no tenderness, guarding & rebound Extremities: no cyanosis, no edema, no clubbing, no ulcers Neurologic: Gait & Station: pertinent finding (no focal motor deficit) Cranial Nerves: grossly intact Assessment and Plan Assessment and Plan Final impression: 1. Paroxysmal atrial fibrillation with rapid ventricular response 2. NSTEMI - suspect demand ischemia 3. Aortic stenosis - possibly severe 4. CKD - creatinine stable today 5. Leukocytosis - etiology unclear Plan/recommendations: IV amiodarone restarted with subsequent conversion to NSR. Cardiac catheterization today. The risks, benefits, and alternatives to cardiac catheterization were also reviewed. Continue aspirin and statin therapy as previously ordered. [place]ent[place] plan for [place] [facility] [place] catheter[place] for evaluation and treatment of +/- CAD. Laboratory Results Last 24 Hours Test 01/19/17 11:16 01/19/17 17:07 01/19/17 20:13 01/20/17 05:39 Bedside Glucose 121 mg/dl 136 mg/dl 136 mg/dl White Blood Count 14.90 K/uL Red Blood Count 3.90 M/uL Hemoglobin 11.7 g/dL Hematocrit 36.6 % Mean Corpuscular Volume 93.8 fL Mean Corpuscular Hemoglobin 30.0 pg Mean Corpuscular Hemoglobin Concent 32.0 g/dl Platelet Count 165 K/uL Mean Platelet Volume 10.9 fL Neutrophils (%) (Auto) 38.3 % Lymphocytes (%) (Auto) 53.2 % Monocytes (%) (Auto) 6.9 % Eosinophils (%) (Auto) 1.1 % Basophils (%) (Auto) 0.2 % Neutrophils # (Auto) 5.71 K/uL Lymphocytes # (Auto) 7.92 K/uL Monocytes # (Auto) 1.03 K/uL Eosinophils # (Auto) 0.16 K/uL Basophils # (Auto) 0.03 K/uL RDW Standard Deviation 57.0 fL RDW Coefficient of Variation 16.9 % Immature Granulocyte % (Auto) 0.3 % Immature Granulocyte # (Auto) 0.05 K/uL Activated Partial Thromboplast Time 50.2 SECONDS Partial Thromboplastin Ratio 1.9 Sodium Level 140 mmol/L Potassium Level 4.4 mmol/L Chloride Level 106 mmol/L Carbon Dioxide Level 27 mmol/L Anion Gap 8.0 mmol/L Blood Urea Nitrogen 34 mg/dl Creatinine 1.24 mg/dl Est Creatinine Clear Calc Drug Dose 39.5 ml/min Estimated GFR () 48.2 Estimated GFR (Non- 41.6 BUN/Creatinine Ratio 27.4 Random Glucose 118 mg/dl Calcium Level 8.4 mg/dl Test 01/20/17 06:28 Bedside Glucose 129 mg/dl
[2017-01-20] MEDS: INSULIN GLARGINE SOLOSTAR 100 UNITS/ML 3 ML PEN SC SCH (10:22)
[2017-01-20] MEDS ORDERED: FENTANYL CITRATE INJ 50 MCG/1 ML 2 ML VIAL ONE (11:17)
[2017-01-20] MEDS ORDERED: MIDAZOLAM HCL 1 MG/ML 2ML VIAL ONE (11:17)
--- NOTE | 2017-01-20 12:18 | Procedure Note ---
Pre-Mod Sedation Assessment General Date of Moderate Sedation: Jan 20, 2017. Vital Signs: Vital Signs Past 12 Hours Date Time Temp Pulse Resp B/P (MAP) Pulse Ox O2 Delivery O2 Flow Rate FiO2 01/20/17 12:15 68 18 137/74 (95) 93 Room Air 01/20/17 12:01 70 20 140/78 (98) 96 Room Air 01/20/17 11:56 71 16 128/71 (90) 98 Room Air 01/20/17 11:44 36.7 70 18 138/70 (92) 91 Room Air 01/20/17 08:00 Room Air 01/20/17 07:37 77 16 94 Room Air 01/20/17 07:32 114 120/61 (80) 01/20/17 07:30 85 134/77 (96) 01/20/17 07:17 36.5 106 19 108/60 (76) 91 Room Air 01/20/17 04:10 Room Air 01/20/17 03:49 36.6 64 18 122/71 (88) 94 Room Air 01/20/17 02:55 36.6 68 18 122/71 94 Room Air Review Cardiovascular: regular rate, rhythm, + systolic murmur Abdomen: normal bowel sounds, non tender, soft Lungs: chest non-tender, lungs clear Pre-Sedation Airway Assessment Oral Cavity: WNL Short Thick Neck: No Hx of Sleep Apnea: No Smoking Status: Current Some Day Smoker Mallampati Classification: Class III ASA Classification: Class IV Procedure Planning Contraindications-for Mod Sed: None Yes Notes The planned sedation has been discussed with the patient and consent obtained. I have identified the patient, determined the appropriateness of sedation and have assessed the patient immediately prior to the procedure. All medicine(s) and interventions are by my order.
--- NOTE | 2017-01-20 12:18 | Procedure Note ---
Post-Mod Sedation Assessment General Date of Moderate Sedation Jan 20, 2017. Vital Signs: Vital Signs Past 12 Hours Date Time Temp Pulse Resp B/P (MAP) Pulse Ox O2 Delivery O2 Flow Rate FiO2 01/20/17 12:15 68 18 137/74 (95) 93 Room Air 01/20/17 12:01 70 20 140/78 (98) 96 Room Air 01/20/17 11:56 71 16 128/71 (90) 98 Room Air 01/20/17 11:44 36.7 70 18 138/70 (92) 91 Room Air 01/20/17 08:00 Room Air 01/20/17 07:37 77 16 94 Room Air 01/20/17 07:32 114 120/61 (80) 01/20/17 07:30 85 134/77 (96) 01/20/17 07:17 36.5 106 19 108/60 (76) 91 Room Air 01/20/17 04:10 Room Air 01/20/17 03:49 36.6 64 18 122/71 (88) 94 Room Air 01/20/17 02:55 36.6 68 18 122/71 94 Room Air Review - Discharge Criteria Vital Signs Stable: Yes Alert/Oriented/Conversant: Yes Returned to Baseline Mental St: Yes Nausea Absent/Minimal: Yes Pain/Discomfort/Absent/Minimal: Yes Normal/Baseline Respirations: Yes Active Bleeding?: No Pt Received D/C Instructions: N/A Prescriptions Given: None Specific Proced. D/C Criteria Distal Pulses Present (Cardiac: Yes Groin site assessed-Card Cath: Yes Voided Prior To Discharge: N/A Discharged Patients Adult Escort/Transportation: N/A
--- NOTE | 2017-01-20 12:36 | Cardiac Catheterization ---
Procedure Note Procedure Date Jan 20, 2017. Pre-Procedure Diagnosis Non STEMI AUC Score 8 Post-Procedure Diagnosis Severe CAD Procedure(s) Performed Coronary Angiography, Aortography (Left subclavian angiography with visualization of the CORTES), Femoral Artery Angiography Online Services Manager Dr. Adames Facilities Operator(s) Cheryl NOC ENGINEER Estimated Blood Loss 8cc Medication(s) Fentanyl, Versed, Lidocaine 1% Summary of Findings 95% distal LM 60% proximal LAD 80% proximal Lcx 70% mid RCA Widely patent CORTES and Left subclavian artery Hemodynamics Rest Ao: 134/51/81 Final Ao: 120/50/78 LV: N/A Recommendations CABG, valve replacement Specimens None Radiation Exposure (mGy) 887 Contrast (mls) 60 Anesthesia Moderate sedation. Start 1135. End 1200. Sedation monitor. Boston Lozada RN Procedural Complication(s) None Disposition PCU ACC Data Cardiac Status Clinical evaluation leading to the procedure CAD Presntation: Non STEMI Anginal Classification: CCS IV Heart Failure: Yes, NYHA Class: CCS III Cardiogenic Shock w/in 24Hrs: No Cardiac Arrest w/in 24Hrs: No Imaging studies past 6 months: Yes Stress studies past 6 months: No Coronary Anatomy Dominant: Right Left Main (% Stenosis): Distal (95%) LAD (% Stenosis): Proximal (60%), Mid (20%) D1 (% Stenosis): Proximal (70%) Circumflex (% Stenosis): Proximal (80%), Mid (10%), Distal (10%) OM1 (% Stenosis): Normal RCA (% Stenosis): Proximal (20%), Mid (70%), Distal (10%) R PDA (% Stenosis): Mid (10%) R PL1 (% Stenosis): Distal (10%) R PL2 (% Stenosis): Proximal (10%) AM (% Stenosis): Normal Aortography Aortic Regurgitation: Other (Patent Left subclavian artery and CORTES) Diagnostic Status: Urgent Closure Device Percutaneous Entry Location: Femoral Closure Device: none - manual hold Intraprocedure Events Significant Dissection: No Perforation: No
[2017-01-20] MEDS: SODIUM CHLORIDE 0.9% 1000ML 1,000 ML IV SCH (13:57)
--- NOTE | 2017-01-20 16:21 | Progress Note ---
Medicine Progress Note Date & Time of Visit: Jan 20, 2017 at 16:13. Subjective patient seen resting , in good spirits denies chest pain, dyspnea, palpitations, dizziness no groin pain denies problems with urination, abdominal pain, fever/chills denies other symptoms Objective Last 8 Hrs Date Time Temp Pulse Resp B/P (MAP) Pulse Ox O2 Delivery O2 Flow Rate FiO2 01/20/17 16:02 36.6 72 20 151/88 (109) 91 Room Air 01/20/17 15:01 71 18 142/62 (88) 93 Room Air 01/20/17 14:29 72 16 99 Room Air 01/20/17 14:00 63 20 159/74 (102) 98 Room Air 01/20/17 13:55 63 18 159/74 (102) 99 01/20/17 13:25 63 18 152/80 (104) 100 Room Air 01/20/17 13:10 63 20 131/77 (95) 95 Room Air 01/20/17 12:55 63 127/74 (91) 91 01/20/17 12:40 65 18 143/78 (99) 100 Room Air 01/20/17 12:40 Room Air 01/20/17 12:15 68 18 137/74 (95) 93 Room Air 01/20/17 12:01 70 20 140/78 (98) 96 Room Air 01/20/17 11:56 71 16 128/71 (90) 98 Room Air 01/20/17 11:44 36.7 70 18 138/70 (92) 91 Room Air Physical Exam: General- oriented x 3, not in distress, speaks in sentences with no effort Head- atraumatic Eyes- EOMI, anicteric Neck- supple, no JVD Lungs- clear to auscultation bl Heart- regular rhythm; no murmur, normal rate Abdomen- normal bowel sounds, soft, nontender right groin: no hematoma, bleeding on the cardiac cath site Extremities- no pretibial edema, no calf tenderness Neuro- alert, oriented x 3; no gross focal deficits Skin- warm & dry Laboratory Results: Last 24 Hours Test 01/19/17 17:07 01/19/17 20:13 01/20/17 05:39 01/20/17 06:28 Bedside Glucose 136 mg/dl 136 mg/dl 129 mg/dl White Blood Count 14.90 K/uL Red Blood Count 3.90 M/uL Hemoglobin 11.7 g/dL Hematocrit 36.6 % Mean Corpuscular Volume 93.8 fL Mean Corpuscular Hemoglobin 30.0 pg Mean Corpuscular Hemoglobin Concent 32.0 g/dl Platelet Count 165 K/uL Mean Platelet Volume 10.9 fL Neutrophils (%) (Auto) 38.3 % Lymphocytes (%) (Auto) 53.2 % Monocytes (%) (Auto) 6.9 % Eosinophils (%) (Auto) 1.1 % Basophils (%) (Auto) 0.2 % Neutrophils # (Auto) 5.71 K/uL Lymphocytes # (Auto) 7.92 K/uL Monocytes # (Auto) 1.03 K/uL Eosinophils # (Auto) 0.16 K/uL Basophils # (Auto) 0.03 K/uL RDW Standard Deviation 57.0 fL RDW Coefficient of Variation 16.9 % Immature Granulocyte % (Auto) 0.3 % Immature Granulocyte # (Auto) 0.05 K/uL Activated Partial Thromboplast Time 50.2 SECONDS Partial Thromboplastin Ratio 1.9 Sodium Level 140 mmol/L Potassium Level 4.4 mmol/L Chloride Level 106 mmol/L Carbon Dioxide Level 27 mmol/L Anion Gap 8.0 mmol/L Blood Urea Nitrogen 34 mg/dl Creatinine 1.24 mg/dl Est Creatinine Clear Calc Drug Dose 39.5 ml/min Estimated GFR () 48.2 Estimated GFR (Non- 41.6 BUN/Creatinine Ratio 27.4 Random Glucose 118 mg/dl Calcium Level 8.4 mg/dl Test 01/20/17 12:49 Bedside Glucose 138 mg/dl Assessment & Plan ACUTE HYPOXIC RESPIRATORY FAILURE SECONDARY TO ACUTE CHF EXACERBATION CXR showed Congestive heart failure versus pulmonary edema CTA chest showed no evidence for aneurysm or dissection. Received lasix 40mg IV cardiology consulted Clinically improved ECHO showed * Left ventricular systolic function is borderline reduced. * The qualitative EF is 50% * Septal and apical motion is consistent with conduction abnormality. * The aortic valve is moderately to severely calcified. * Doppler and 2D imaging of the aortic valve are discordant. Moderate to borderline severe aortic stenosis is suspected. * Mild aortic regurgitation. * There is moderate mitral regurgitation. ATRIAL FIBRILLATION IN RVR Rate in controlled with Amiodarone Convert back to Normal sinus rhythm [id number] score 4 On heparin drip, aspirin Continue metoprolol 12.5 mg BID Cardiology on board Starting on PO amiodarone NSTEMI Non-ST elevation myocardial infarction secondary to demand ischemia Troponin increased to 2.7 On heparin drip, asa and metoprolol Cardiology recommended LUCAS and cardiac cath during this hospitalization 01/19 LUCAS showed * There is severe calcific aortic valve stenosis. * SHERON 0.88cm2 per 2D planimetry. * Ejection Fraction = 55-60%. * There is mild concentric left ventricular hypertrophy. * Septal motion is consistent with conduction abnormality. * Mitral valve leaflets are moderately thickened and mildly calcified. * There is mild mitral regurgitation. * There is mild tricuspid regurgitation. * Doppler findings do not suggest pulmonary hypertension. * Severe atherosclerotic plaque(s) in the descending aorta. 01/20 Cardiac Cath 95% distal LM 60% proximal LAD 80% proximal Lcx 70% mid RCA Widely patent CORTES and Left subclavian artery - Sustainability Specialist Dr. Adames recommending transfer to [facility] for evaluation of Aortic Stenosis and CAD Elevated WBC possible reactive Elevated lactic acid Afebrile, procalcitonin normal Zosyn was discontinued 01/19 WBC trending back up Afebrile blood cx showed no growth repeat procalcitonin negative -- urine culture: (+) e coli: sensitive to all except Ampicillin patient asymptomatic -- monitor HTN BP stable continue felodipine and metoprolol 12.5 mg BID Candesartan on hold Continue monitor BP DM2 HBa1c 6.6 on Lantus and ISS monitor Acute renal failure Creatine on admission 1.38 Unknown baseline Creatine improved to 1.3 Hold Candesartan Monitor BMP Tobacco abuse On nicotine patch Counseling on smoking cessation DVT px on heparin drip CODE STATUS FULL CODE DISPOSITION transfer to [facility] [place] for further evaluation and management of Aortic Stenosis, CAD Consultants: Cardiology Critical care Consultants: Cardiology Critical care Current Inpatient Medications: Current Inpatient Medications Medications (Trade) Dose Ordered Sig/Vanessa Route Start Time Stop Time Status Last Admin Dose Admin Ioversol (Optiray 320) 125 ml UD PRN IV 01/18/17 00:30 01/22/17 00:29 Acetaminophen (Tylenol Tab) 650 mg Q4H PRN PO 01/18/17 00:45 02/17/17 00:44 Nitroglycerin (Nitrostat Tab) 0.4 mg UD PRN SL 01/18/17 00:45 02/17/17 00:44 Insulin Glargine (Lantus Solostar Pen) 10 units DAILY SC 01/19/17 09:00 02/18/17 08:59 01/20/17 10:22 10 UNITS Insulin Aspart (novoLOG ASPART) SLIDING SCALE If C... ACHS SC 01/18/17 06:45 02/17/17 06:59 01/19/17 19:06 2 UNITS Glucose (Glucose 40% Gel) 15-30 GRAMS 15 GRAMS... UD PRN PO 01/18/17 00:45 02/17/17 00:44 Glucose (Glucose Chew Tab) 4-8 Tablets 4 Tabl... UD PRN PO 01/18/17 00:45 02/17/17 00:44 Dextrose (Dextrose 50% 50ML Syringe) 25-50ML OF 50% DW IV FOR... UD PRN IV 01/18/17 00:45 02/17/17 00:44 Glucagon (Glucagon Inj) 1 mg UD PRN SQ 01/18/17 00:45 02/17/17 00:44 Hydromorphone HCl (Dilaudid Inj) 0.5 mg Q3H PRN IV 01/18/17 00:45 02/01/17 00:44 Nicotine (Nicoderm Cq 7 Mg Patch) 1 patch QAM TD 01/18/17 09:00 02/17/17 08:59 Miscellaneous (Remove Nicoderm Patch) 1 ea HS N/A 01/18/17 21:00 02/17/17 20:59 Promethazine HCl 12.5 mg/Sodium Chloride 50.5 ml @ 204 mls/hr Q6H PRN IV 01/18/17 00:45 02/17/17 00:44 Allopurinol (Zyloprim Tab) 300 mg BID PO 01/18/17 09:00 02/17/17 08:59 01/20/17 07:55 300 MG Felodipine (Plendil Tabcr) 5 mg DAILY PO 01/18/17 09:00 02/17/17 08:59 01/20/17 07:55 5 MG Ipratropium [place] (Atrovent 0.02% 0.5MG/2.5ML Neb) 0.5 mg Q4H PRN INH 01/18/17 01:00 02/17/17 00:59 Levalbuterol (Xopenex 1.25MG/ 0.5ML Neb) 1.25 mg Q4H PRN INH 01/18/17 01:00 02/17/17 00:59 Aspirin (Ecotrin Tab) 81 mg QAM PO 01/19/17 09:00 02/18/17 08:59 01/20/17 07:55 81 MG Ipratropium [place] (Atrovent 0.02% 0.5MG/2.5ML Neb) 0.5 mg Q6R INH 01/18/17 09:00 02/17/17 08:59 01/20/17 14:29 0.5 MG Levalbuterol (Xopenex 1.25MG/ 0.5ML Neb) 1.25 mg Q6R INH 01/18/17 09:00 02/17/17 08:59 01/20/17 14:29 1.25 MG Metoprolol Tartrate (Lopressor Tab) 12.5 mg BID PO 01/18/17 21:00 02/17/17 20:59 01/20/17 07:55 12.5 MG Amiodarone HCl (Cordarone Tab) 200 mg BID PO 01/19/17 21:00 02/18/17 20:59 01/20/17 07:55 200 MG Sodium Chloride 1,000 ml @ 70 mls/hr [id number] IV 01/20/17 00:00 02/19/17 00:00 01/20/17 13:57 70 MLS/HR Lorazepam (Ativan Tab) 0.25 mg HS PRN PO 01/19/17 20:15 02/18/17 20:14 01/19/17 21:05 0.25 MG Amiodarone HCL/ Dextrose 200 ml @ 16.7 mls/hr [id number] IV 01/20/17 13:00 02/19/17 12:59 01/20/17 13:31 16.7 MLS/HR
[2017-01-20] MEDS ORDERED: ASPEC81 PO (16:23)
[2017-01-20] MEDS ORDERED: CRD200 PO (16:23)
[2017-01-20] MEDS ORDERED: LPR25 PO (16:23)
--- NOTE | 2017-01-20 16:26 | Discharge Instructions ---
Discharge Instructions Date of Service Jan 20, 2017. Admission Reason for Admission: Respiratory Failure With Hypoxia Discharge Discharge Diagnosis / Problem: NSTEMI, CAD, AORTIC STENOSIS Discharge Goals Goal(s): Diagnostic testing, Therapeutic intervention Activity Recommendations Activity Level: Assistance Required Therapies: Physical Therapy, Occupational Therapy . Additional Information Patient informed of condition: Yes Advance Directives: No (UNKNOWN) DNR: No (PATIENT IS A FULL CODE) Level of Care: Other ([facility]) Communicable Disease: No Prognosis: Stable Instructions / Follow-Up Instructions / Follow-Up PLEASE REFER TO SEPARATE MEDICAL RECONCILIATION SHEET FOR UPDATED MEDICATIONS. PLEASE REFER TO ACCOMPANYING DISCHARGE SUMMARY FOR FURTHER DETAILS. Current Hospital Diet Patient's current hospital diet: AHA Diet (Heart Healthy), Diabetes Type 2 Diet Discharge Diet Recommended Diet: AHA Diet (Heart Healthy), Diabetes Type 2 Diet Procedures Procedures Performed: transesophageal echo Pending Studies Studies pending at discharge: yes (PER [facility]) List of pending studies: PER [facility] Physician Orders On Transfer Special Precautions: PLEASE REFER TO SEPARATE MEDICAL RECONCILIATION SHEET FOR UPDATED MEDICATIONS. PLEASE REFER TO ACCOMPANYING DISCHARGE SUMMARY FOR FURTHER DETAILS. Laboratory Results Hemoglobin A1c Test 01/17/17 22:05 Range/Units Estimated Average Glucose 143 mg/dl Hemoglobin A1c 6.6 H 4.5-5.6 % Lipid Panel Test 01/18/17 05:45 Range/Units Triglycerides Level 88 0-150 mg/dl Cholesterol Level 192 0-200 mg/dl HDL Cholesterol 51 mg/dl Cholesterol/HDL Ratio 3.8 LDL Cholesterol, Calculated 123 mg/dl Medical Emergencies . Who to Call and When: Medical Emergencies: If at any time you feel your situation is an emergency, please call 911 immediately. . Non-Emergent Contact Non-Emergency issues call your: Primary Care Provider, Social Science Instructor . Past History Medical & Surgical History: (1) CHF (congestive heart failure) (2) Atrial fibrillation with RVR (3) Respiratory failure with hypoxia (4) HTN (hypertension) . "Provider Documentation" section prepared by Kana Bowden. . Core Measure Problem Core Measures: None
--- NOTE | 2017-01-20 16:37 | Discharge Summary ---
Discharge Summary Date of Service Jan 20, 2017. Discharge Summary Admission Date: Jan 18, 2017 at 00:10 Discharge Date: Jan 20, 2017 Discharge Disposition: Acute care facility Principal Diagnosis: ACUTE HYPOXIC RESPIRATORY FAILURE SECONDARY TO ACUTE CHF EXACERBATION Secondary Diagnoses/Problems: Please refer to hospital course below. Procedures: ECHO AND CARDIAC CATH: See hospital course below for details CHEST ONE VIEW PORTABLE CLINICAL HISTORY: EVALUATE RESPIRATORY DISTRESS.DYSPNEA dyspnea COMPARISON STUDY: No previous studies for comparison. FINDINGS: Moderate cardiomegaly. Prominent pulmonary vasculature. Diaphragms are smooth. Slight blunting lateral costophrenic angles. IMPRESSION: Congestive heart failure versus pulmonary edema The above report was generated using voice recognition software. It may contain grammatical, syntax or spelling errors. Study: CTA of the chest HISTORY:. Chest pain. FINDINGS: The thoracic aorta is normal in course and caliber. Moderate atelectatic changes present. Evidence for aneurysm or dissection. The heart is enlarged. Components of moderate pulmonary edema/congestive failure. Mild mediastinal and hilar adenopathy. No evidence for significant pulmonary embolism. IMPRESSION: 1. No evidence for aneurysm or dissection. 2. Moderate atherosclerotic change thoracic aorta. 3. Components of congestive heart failure with right to lesser extent left pleural effusion. 4. Moderate cardiomegaly. 5. No evidence for pulmonary embolus ABD/PELVIS WITHOUT FOR STONE CT DOSE: HISTORY: Flank pain FINDINGS: bilateral pleural effusions. Bibasilar atelectasis. Liver spleen and pancreas are unremarkable. Several calcified splenic granulomas are present. Hyperplastic change of the adrenal glands. Moderate atherosclerotic change abdominal and pelvic arterial vasculature. No evidence for aneurysm or dissection. Nonobstructive bowel pattern. Scattered colonic diverticulosis. No evidence for diverticulitis. Degenerative changes of the thoracolumbar spine. Negative urinary tracts. TECHNIQUE: Multiaxial CT images of the abdomen and pelvis were performed without the use of intravenous and oral contrast according to the standard department stone protocol. A dose lowering technique was utilized adhering to the principles of ALARA. COMPARISON STUDY: None. IMPRESSION: Bilateral pleural effusions with bibasilar atelectasis. No acute process specifically of the abdomen or pelvis. No acute process of the abdomen or pelvis. Consultations: Cardiology; Critical care Pending Studies/Follow-Up: Please refer to hospital course below. Medication Reconciliation New Medications: Amiodarone HCl (Amiodarone HCl) 200 Mg Tab 200 MG PO BID for 30 Days, #60 TAB Aspirin (Aspirin EC Low Dose) 81 Mg Ectab 81 MG PO QAM for 30 Days Metoprolol Tartrate (Lopressor) 25 Mg Tab 12.5 MG PO BID for 30 Days, #30 TAB Continued Medications: Allopurinol (Zyloprim) 300 Mg Tab 300 MG PO BID, TAB Felodipine (Plendil) 5 Mg Tabcr 5 MG PO DAILY, TAB Discontinued Medications: Candesartan Cilexetil (Candesartan Cilexetil) 4 Mg Tab 4 MG PO HS [Co-Codamol] () 1-2 TABS PO QID PRN for PRN DOSE 15/500 [Zimovane] () 7.5 MG PO HS Admission Information HPI (per Admitting provider): CHIEF COMPLAINT: Shortness of breath. History was obtained from the patient and ER provider. HISTORY OF PRESENT ILLNESS: Medical history is significant for hypertension, DM2 diet-controlled, ongoing tobacco abuse and gout. Patient is a [place] resident who has been in [facility] to visit family since last month. A few months ago in [place], the patient had a respiratory infection for which she completed antibiotic Rx. In the last week had intermittent left-sided chest discomfort going to the back between the shoulder blades, nonpleuritic. Intermittent daily symptoms accompanied by shortness of breath and palpitations relieved by home narcotics. Patient also complaining of achy low back discomfort. Patient denies leg swelling. Last night, she had worsening discomfort and shortness of breath. Patient was brought to the Emergency Room, noted to be in respiratory distress, hypoxemic. Wide complex tachycardia, transient A-Fib in the ER. Patient was given Lopressor followed by Amiodarone drip. Patient was started on BiPAP. She was also given aspirin. Currently feeling comfortable. Hx of beta jose use in the past - stopped by her PCP due to concern about sugars as per patient. Although the patient snores, no apneic episodes noted as per . Physical Exam (per Admitting): VITAL SIGNS: Blood pressure was noted to be 112/87, pulse rate 142 later 86, RR 33 later 22, temperature 36.8 and sats 77 on room air later 95 on BiPAP. GENERAL: Noted to be obese, slightly anxious, in no respiratory distress. SKIN: Normal color, warm. HEENT: [place] palpebral conjunctivae. No ptosis. Dry mucosa. BiPAP mask in place. NECK: Short. No tenderness. JVD not assessed. CHEST: Decreased breath sounds. No tenderness. CV: Regular rate and rhythm. Palpable LE pulses ABDOMEN: Some distention, nontender. EXTREMITIES: No edema, no tenderness. No gross deformities NEUROLOGIC: Coherent. No gross focality. Hospital Course ACUTE HYPOXIC RESPIRATORY FAILURE SECONDARY TO ACUTE CHF EXACERBATION CXR showed Congestive heart failure versus pulmonary edema CTA chest showed no evidence for aneurysm or dissection. Received lasix 40mg IV cardiology consulted Clinically improved ECHO showed * Left ventricular systolic function is borderline reduced. * The qualitative EF is 50% * Septal and apical motion is consistent with conduction abnormality. * The aortic valve is moderately to severely calcified. * Doppler and 2D imaging of the aortic valve are discordant. Moderate to borderline severe aortic stenosis is suspected. * Mild aortic regurgitation. * There is moderate mitral regurgitation. ATRIAL FIBRILLATION IN RVR Rate in controlled with Amiodarone Convert back to Normal sinus rhythm [id number] score 4 On heparin drip, aspirin Continue metoprolol 12.5 mg BID Cardiology on board Starting on PO amiodarone NSTEMI Non-ST elevation myocardial infarction secondary to demand ischemia Troponin increased to 2.7 On heparin drip, asa and metoprolol Cardiology recommended LUCAS and cardiac cath during this hospitalization 01/19 LUCAS showed * There is severe calcific aortic valve stenosis. * SHERON 0.88cm2 per 2D planimetry. * Ejection Fraction = 55-60%. * There is mild concentric left ventricular hypertrophy. * Septal motion is consistent with conduction abnormality. * Mitral valve leaflets are moderately thickened and mildly calcified. * There is mild mitral regurgitation. * There is mild tricuspid regurgitation. * Doppler findings do not suggest pulmonary hypertension. * Severe atherosclerotic plaque(s) in the descending aorta. 01/20 Cardiac Cath 95% distal LM 60% proximal LAD 80% proximal Lcx 70% mid RCA Widely patent CORTES and Left subclavian artery - [employer] Dr. Adames recommending transfer to [facility] for evaluation of Aortic Stenosis and CAD Elevated WBC possible reactive Elevated lactic acid Afebrile, procalcitonin normal Zosyn was discontinued 01/19 WBC trending back up Afebrile blood cx showed no growth repeat procalcitonin negative -- urine culture: (+) e coli: sensitive to all except Ampicillin patient asymptomatic -- monitor HTN BP stable continue felodipine and metoprolol 12.5 mg BID Candesartan on hold Continue monitor BP DM2 HBa1c 6.6 on Lantus and ISS monitor Acute renal failure Creatine on admission 1.38 Unknown baseline Creatine improved to 1.3 Hold Candesartan Monitor BMP Tobacco abuse On nicotine patch Counseling on smoking cessation Carotid Artery Stenosis Carotid US: 1. Moderate plaque formation bilaterally. 2. 50/60% stenosis right internal carotid artery. 3. No additional significant stenosis - needs Aspirin, Statin, close follow up DVT px on heparin drip CODE STATUS FULL CODE DISPOSITION transfer to [facility] for further evaluation and management of Aortic Stenosis, CAD Consultants: Cardiology Critical care Total time spent on discharge = 30 minutes This includes examination of the patient, discharge planning, medication reconciliation, and communication with other providers. Discharge Instructions Discharge Instructions Date of Service Jan 20, 2017. Admission Reason for Admission: Respiratory Failure With Hypoxia Discharge Discharge Diagnosis / Problem: NSTEMI, CAD, AORTIC STENOSIS Discharge Goals Goal(s): Diagnostic testing, Therapeutic intervention Activity Recommendations Activity Level: Assistance Required Therapies: Physical Therapy, Occupational Therapy . Additional Information Patient informed of condition: Yes Advance Directives: No (UNKNOWN) DNR: No (PATIENT IS A FULL CODE) Level of Care: Other ([facility]) Communicable Disease: No Prognosis: Stable Instructions / Follow-Up Instructions / Follow-Up PLEASE REFER TO SEPARATE MEDICAL RECONCILIATION SHEET FOR UPDATED MEDICATIONS. PLEASE REFER TO ACCOMPANYING DISCHARGE SUMMARY FOR FURTHER DETAILS. Current Hospital Diet Patient's current hospital diet: AHA Diet (Heart Healthy), Diabetes Type 2 Diet Discharge Diet Recommended Diet: AHA Diet (Heart Healthy), Diabetes Type 2 Diet Procedures Procedures Performed: transesophageal echo Pending Studies Studies pending at discharge: yes (PER [facility]) List of pending studies: PER [facility] Physician Orders On Transfer Special Precautions: PLEASE REFER TO SEPARATE MEDICAL RECONCILIATION SHEET FOR UPDATED MEDICATIONS. PLEASE REFER TO ACCOMPANYING DISCHARGE SUMMARY FOR FURTHER DETAILS. Laboratory Results Hemoglobin A1c Test 01/17/17 22:05 Range/Units Estimated Average Glucose 143 mg/dl Hemoglobin A1c 6.6 H 4.5-5.6 % Lipid Panel Test 01/18/17 05:45 Range/Units Triglycerides Level 88 0-150 mg/dl Cholesterol Level 192 0-200 mg/dl HDL Cholesterol 51 mg/dl Cholesterol/HDL Ratio 3.8 LDL Cholesterol, Calculated 123 mg/dl Medical Emergencies . Who to Call and When: Medical Emergencies: If at any time you feel your situation is an emergency, please call 911 immediately. . Non-Emergent Contact Non-Emergency issues call your: Primary Care Provider, [employer] . Past History Medical & Surgical History: (1) CHF (congestive heart failure) (2) Atrial fibrillation with RVR (3) Respiratory failure with hypoxia (4) HTN (hypertension) . "Provider Documentation" section prepared by Kana Bowden. . Core Measure Problem Core Measures: None
== END 2017-01-20 19:40 | disposition short-term general hospital (02) | DRG 280 ==
LOC: C.EDB 22:05 → C.MSICU 01-18 00:10 → ENRESERV 01-18 00:15 → C.2T 01-18 08:42
PROVIDERS: ADMIT Internal Medicine; ATTEND Internal Medicine
PROC: 4A023N6 Measurement of Cardiac Sampling and Pressure, Right Heart, Percutaneous Approach (ICD-10-PCS; principal; 2017-01-20 11:22)
DX: I50.21 Acute systolic (congestive) heart failure (principal); J96.01 Acute respiratory failure with hypoxia; I21.4 Non-ST elevation (NSTEMI) myocardial infarction; I48.92 Unspecified atrial flutter; N39.0 Urinary tract infection, site not specified; I47.1 Supraventricular tachycardia; I35.0 Nonrheumatic aortic (valve) stenosis; M10.9 Gout, unspecified; I10 Essential (primary) hypertension; F17.210 Nicotine dependence, cigarettes, uncomplicated; I44.7 Left bundle-branch block, unspecified; Z82.49 Family history of ischemic heart disease and other diseases of the circulatory system